=== PATIENT | male | born 1955 | race Caucasian/White ===

== ENCOUNTER 2019-06-16 12:17 | Inpatient (IN) | payer MEDICARE, SELFPAY ==
[2019-06-16] VITALS (10 sets, daily range): BP systolic 134–161; BP diastolic 81–95; PULSE 70–96; RESP 16–25; TEMP 36.6–37.7; O2SAT 94–100
--- NOTE | ~2019-06-16 | XR_ITS ---
XR chest 2V 06/16/2019 12:56 Indication: Shortness of breath. COPD. Procedure: AP view of the chest Comparison: 02/14/2017 Findings: Bibasilar airspace disease, compatible with pneumonia. No pleural effusion or pneumothorax. No acute osseous abnormality. Moderate degenerative changes of the left shoulder. Impression: 1: Bibasilar airspace disease, compatible with pneumonia. Edema is less favored. Reviewed, dictated and finalized at location A. PLASTERER Impression: 1: Bibasilar airspace disease, compatible with pneumonia. Edema is less favored .
--- NOTE | ~2019-06-16 | CT_ITS ---
EXAMINATION: CTA chest PE protocol DATE: 06/16/2019 14:07 INDICATION: Chest pain and hemoptysis TECHNIQUE: Computed tomography angiography (CTA) of the chest was performed with 100 mL Omnipaque-350 intravenous contrast timed to evaluate the pulmonary arteries. Coronal maximum intensity projection 3D-reconstructions were created by the technologist. The dose-length product (DLP) was 790.00 mGy-cm. Automated exposure control and iterative reconstruction technique were employed. COMPARISON: 07/18/2011 FINDINGS: The pulmonary arteries are well-opacified. Motion artifact limits the examination. No centr al pulmonary embolism is identified. There are patchy airspace throughout the lungs, worst in the low er lobes. Trace pleural effusions are present. There is no pneumothorax. The heart size is normal. Th ere is mediastinal and bilateral hilar lymphadenopathy. There are bridging osteophytes at multiple le vels in the spine, consistent with diffuse idiopathic skeletal hyperostosis (DISH). IMPRESSION: 1. No evidence of pulmonary embolism, sensitivity limited by motion artifact. 2. Multifocal pneumonia. Reviewed, dictated and finalized at location A. NG FILE CLERK
--- NOTE | 2019-06-16 12:27 | ECG_ITS ---
Measurements Intervals Adams Rate: 75 P: 53 IA: 182 QRS: 44 QRSD: 94 T: 27 QT: 416 QTc: 467 Interpretive Statements SINUS RHYTHM BORDERLINE ST-T WAVE ABNORMALITY- INFERIOR LEADS BORDERLINE ECG Electronically Signed On 06-16-2019 16:06:11 ECHOCARDIOGRAPHER by Boyd Best D.O.
[2019-06-16 12:43] LABS: Basophils Absolute Auto 0.1 K/mm3 (0.0-0.1); Basophils Percent Auto 0.9 % (0.2-1.2); Eosinophils Absolute Auto 0.4 K/mm3 (0-0.3); Eosinophils Percent Auto 5.3 % (0-4.4); Hematocrit 31.8 % (42.0-52.0); Hemoglobin 10.7 g/dL (14.0-18.0); Immature Granulocyte Absolute 0.12 K/mm3 (0.00-0.031); Immature Granulocyte Percent A 1.8 % (0-0.5); Lymphocytes Absolute Auto 1.79 K/mm3 (0.9-3.2); Lymphocytes Percent Auto 26.4 % (18.3-44.2); Mean Corpuscular HGB Conc 33.6 g/dl (32-36); Mean Corpuscular Hemoglobin 29.3 pg (26-34); Mean Corpuscular Volume 87.1 fl (80-100); Monocytes Absolute Auto 0.7 K/mm3 (0.1-0.6); Monocytes Percent Auto 9.9 % (2.6-8.5); Neutrophils Absolute Auto 3.8 K/mm3 (1.3-6.7); Neutrophils Percent Auto 55.7 % (45.5-73.1); Platelet Count Result 221 k/mm3 (150-375); Red Blood Count 3.65 M/mm3 (4.6-6.20); Red Cell Distribution Width 12.8 % (11.5-14.5); White Blood Count 6.8 K/mm3 (4.5-10.0)
[2019-06-16 12:54] LABS: Blood Urea Nitrogen 26 mg/dL (9-20); Calcium 9.2 mg/dL (8.4-10.2); Carbon Dioxide 25 mmol/L (22-30); Chloride 105 mmol/L (98-107); Estimated Glomerular Filt Rate > 60; Glucose 87 mg/dL (75-110); Potassium 3.5 mmol/L (3.4-5.0); Sodium 140 mmol/L (137-145)
--- NOTE | 2019-06-16 13:10 | ED.GENADULT ---
HPI - General Adult General Chief complaint: Shortness of Breath/Dyspnea Stated complaint: SOB, Cough Time Seen by Provider: 06/16/19 13:06 Source: patient Mode of arrival: ambulatory Limitations: no limitations History of Present Illness HPI narrative: The pt is a 63 y/o male who presents to the ED with c/o CP and hemoptysis. The pt states that he woke up and was coughing up phlegm yesterday morning that became blood by the evening. His CP is located on the lt side of his chest and began today upon arrival to the ED. The pt states that he has been coughing up globs of blood constantly. He reports chills, sweats, nausea, and epistaxis, but denies myalgia or vomiting. The has a PMHx of COPD, HTN, and osteoarthritis. He is not on a blood thinner, smokes over 1 PPD, and does not drink EtOH. complaint: CP and hemoptysis Onset (ago): unknown (hemopytsis began yesterday, CP began today upon arrival to ED) Location: chest (lt) Associated symptoms: other (chills, sweats, nausea, epistaxis) Related Data Home Medications Medication Instructions Recorded Confirmed aspirin 81 mg DAILY 04/20/19 06/16/19 ibuprofen 800 mg TID PRN 04/20/19 06/16/19 metoprolol succinate 25 mg PO DAILY 04/20/19 06/16/19 oxycodone-acetaminophen 1 tablet Q4-6H PRN 04/20/19 06/16/19 tamsulosin 0.4 mg PO DAILY 04/20/19 06/16/19 gabapentin 800 mg PO TID 06/16/19 06/16/19 Allergies Allergy/AdvReac Type Severity Reaction Status Date / Time No Known Allergies Allergy Unknown Verified 04/20/19 08:26 Review of Systems Review of Systems: All systems reviewed & are unremarkable except as noted in HPI and below Constitutional: Constitutional: Reports chills and Reports other (sweats) ENT: Reports epistaxis Cardiovascular: Cardiovascular: Reports chest pain Respiratory: Respiratory: Reports hemoptysis Gastrointestinal: Gastrointestinal: Reports nausea and Denies vomiting Musculoskeletal: Musculoskeletal: Denies myalgias [facility] Past Medical History Medical History (Updated 06/16/19 @ 16:48 by Shayy Landa MD) Anxiety Arthritis COPD (chronic obstructive pulmonary disease) Depression Emphysema lung Enlarged prostate GERD (gastroesophageal reflux disease) Hyperlipidemia Hypertension Hypothyroid Pain Polycystic kidney disease Psoriasis Surgical History Surgical History (Updated 06/16/19 @ 13:23 by Meghana Arango) H/O prostatectomy Social History Social History (Updated 06/16/19 @ 13:23 by Meghana Arango) Smoking packs per day: 1 Smoking cigarettes per day: 20.0 Years smoked: 45 Smoking pack-years: 45.00 Smoking status: Current every day smoker Tobacco type: cigarettes Alcohol intake: never Substance use: never Gender identity (if verbalized by the patient): Male Spiritual care concerns: No Agree to blood products: Yes Exam Const: General: alert Orientation/consciousness: patient oriented x3 Other: patent is no acute distress but looks like he does not feel well HENMT: Head: normocephalic and atraumatic General nose exam: Normal external nose present and Normal nares present Mouth: Yes Normal oral and palatal mucosa present and Yes lip normal Throat: posterior oropharynx normal and tonsils normal Eyes: Conjunctivae: conjunctivae normal Pupils: Equal, round and reactive pupils present EOM: EOMs intact bilaterally Neck: Neck: normal visual inspection Chest: Chest palpation & inspection: normal inspection of the chest Resp: Effort & Inspection: normal respiratory effort, not tachypneic and no use of accessory muscles Auscultation: wheezes (faint expiratory wheezing upper lobes bilateral) and diminished lung sounds Other: patient coughing but no hemoptysis. Course Reevaluation(s) Reevaluation #1: Patient states he feels better after neb tx. I have discussed plan to admitted for multifocal pneumonia Date: 06/16/19 Time: 14:30 Consultations Consultation #1: Discussed case with Naida Christianson
[2019-06-16 13:31] LABS: Prothrombin Time 12.6 Seconds (11.1-14.7)
[2019-06-16 13:32] LABS: Partial Thromboplastin Time 37.4 SECONDS (22.3-36.8)
[2019-06-16] MEDS: ALBUTEROL SULFATE NEB 2.5 MG/0.5 ML INH 5 MG INHALATION ×2 (13:39→20:49)
[2019-06-16] MEDS: IPRATROPIUM BR 0.02% INH SOLN 0.5 MG/2.5 ML VIAL INHALATION ×2 (13:39→20:49)
[2019-06-16 13:41] LABS: Alveolar/Arterial O2 Gradient 51.2 mmHg; Base Excess ABG -1.8 mEq/l (+/-2.0); Carboxyhemoglobin 0.5 % THb (0-2.0); Device ROOM AIR; Fractional Inspired Oxygen 21 %; HCO3 ABG 21.4 mEq/l (22.0-26.0); Methemoglobin ABG 0.4 %THb (0-1.5); Modified Allen's Test Pass; Oxygen Content ABG 14.9 %vol (16.0-22.0); Oxygen Saturation ABG 92.9 % (95.0-100.0); Oxyhemoglobin 91.5 % THb (90.0-100.0); PCO2 ABG 31.2 mmHg (35.0-45.0); PO2 ABG 61.2 mmHg (80.0-100.0); PO2 FiO2 Ratio Arterial Blood 2.91 %; Reduced Hemoglobin 7.6 %THb (0-5.0); Site Drawn LEFT RADIAL; Total Hemoglobin 11.6 g/dL (12.0-18.0); pH ABG 7.454 (7.350-7.450)
[2019-06-16 14:12] LABS: NT Pro B Type Natriuretic Pept 3010 PG/ML (5-100); Troponin I < 0.012 ng/mL (0.000-0.034)
--- NOTE | 2019-06-16 16:21 | ADMGEN ---
This patient, Kapil Cohen, was admitted to 3 Med Surg Room 320-01 @ 1555. Patient/family oriented to hospital policies and general routines including ID bracelet, bed and alarms, visiting hours, pain management, procedures, bathroom and other care routines, personal items, smoking policy, room service/diet, and visiting hours. Valuables list has been completed. Information on how to activate the Rapid Response Team has been discussed. Patient/Family are encouraged to report perceived risks to care and to ask questions if they do not understand what they are told or what they should do.
[2019-06-16] MEDS: LACTATED RINGERS 1,000 ML 125 ML IV CONT (16:52)
--- NOTE | 2019-06-16 19:45 | PM.IMHP ---
H&P: HPI History of Present Illness Chief complaint: Shortness of breath, hemoptysis. Narrative: Kapil Cohen is a 63 year old male smoker with COPD and hypertension who presented to the emergency department earlier this afternoon from home for evaluation of shortness of breath and hemoptysis. He began feeling poorly yesterday, with cough productive of dark green phlegm, diffuse frontal headache, subjective fever, chills, sweats, and nausea. He describes left-sided pleuritic pain which is worse with coughing and deep inspiration. He is mildly short of breath due to avoiding deep inspiration. Additionally, he had an episode of epistaxis and since then has been coughing up ?globs of blood.? At the time my evaluation, he began to cough and had posttussive emesis. He did not get the flu shot this year. He denies myalgias and arthralgias. He has appetite has been poor. He has had a couple of loose stools, but nothing significant. He denies significant sinus congestion, otalgia, and odynophagia. He denies sick contacts. Review of Systems Review of Systems: All systems reviewed & are unremarkable except as noted in HPI and below PMFSH Past Medical History Medical History (Updated 06/16/19 @ 20:38 by Naida Lazo PA-C) Anxiety Arthritis Chronic pain Patient has chronic pain in his left shoulder, knees, and back. COPD with emphysema Depression Enlarged prostate GERD (gastroesophageal reflux disease) History of anemia Hyperlipidemia Hypertension Psoriasis Tobacco dependence Surgical History Surgical History (Updated 06/16/19 @ 20:36 by Naida Lazo PA-C) No history of previous surgery Family History Family History (Updated 06/16/19 @ 20:36 by Naida Lazo PA-C) Other Lung cancer Social History Social History (Updated 06/16/19 @ 20:39 by Naida Lazo PA-C) Social History: The patient lives in [place] with his . He designates his , Neda, as his surrogate decision maker and he wishes to be a full code. 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 He denies alcohol and drug abuse. Smoking packs per day: 1 Smoking cigarettes per day: 20.0 Years smoked: 45 Smoking pack-years: 45.00 Smoking status: Current every day smoker Tobacco type: cigarettes Alcohol intake: never Substance use: never Gender identity (if verbalized by the patient): Male Spiritual care concerns: No Agree to blood products: Yes Meds Home Medications and Allergies Home Medications Medication Instructions Recorded Confirmed Type aspirin 81 mg DAILY 04/20/19 06/16/19 History ibuprofen 800 mg TID PRN 04/20/19 06/16/19 History metoprolol succinate 25 mg PO DAILY 04/20/19 06/16/19 History oxycodone-acetaminophen 1 tablet Q4-6H PRN 04/20/19 06/16/19 History tamsulosin 0.4 mg PO DAILY 04/20/19 06/16/19 History gabapentin 800 mg PO TID 06/16/19 06/16/19 History Allergies Allergy/AdvReac Type Severity Reaction Status Date / Time No Known Allergies Allergy Unknown Verified 04/20/19 08:26 Vital Signs Vital Signs - 24 hr 06/16/19 12:23 06/16/19 12:26 06/16/19 12:27 Temperature 97.9 F Pulse Rate 80 78 Respiratory Rate 25 H Blood Pressure 153/93 H Pulse Oximetry 99 99 06/16/19 13:39 06/16/19 13:47 06/16/19 15:52 Temperature Pulse Rate 70 80 80 Respiratory Rate 17 22 H 18 Blood Pressure 161/94 H 146/95 H Pulse Oximetry 100 96 06/16/19 15:55 Temperature 98.4 F Pulse Rate 77 Respiratory Rate 18 Blood Pressure 143/81 H Pulse Oximetry 95 Exam Narrative: Exam Narrative: General: A well-developed, moderately ill-appearing male lying on his right side in bed in no acute distress. HEENT: Normocephalic, atraumatic. PERRL, EOMI. Sclerae anicteric. Oral mucosa tacky. Neck: Supple. Respiratory: Respirations are nonlabored. Lung sounds are signifi
[2019-06-16] MEDS: ONDANSETRON INJ 4 MG/2 ML VIAL IV PUSH (20:03)
[2019-06-16 21:52] LABS: Iron 31 ug/dL (49-181)
[2019-06-16 22:01] LABS: Percent Iron Saturation 14 % (20-50)
[2019-06-16] MEDS: GABAPENTIN 400 MG CAPSULE 800 MG PO (22:12)
[2019-06-16 22:40] LABS: Folic Acid > 20.0 ng/mL (2.76->20)
[2019-06-17] VITALS (12 sets, daily range): BP systolic 126–144; BP diastolic 67–81; PULSE 76–87; RESP 16–20; TEMP 36.6–37; O2SAT 91–96
[2019-06-17] MEDS: LACTATED RINGERS 1,000 ML 125 ML IV CONT ×2 (00:55→09:18)
[2019-06-17] MEDS: ALBUTEROL SULFATE NEB 2.5 MG/0.5 ML INH 5 MG INHALATION ×3 (03:00→14:44)
[2019-06-17] MEDS: IPRATROPIUM BR 0.02% INH SOLN 0.5 MG/2.5 ML VIAL INHALATION ×3 (03:00→14:44)
[2019-06-17 06:23] LABS: Basophils Percent Auto 0.5 % (0.2-1.2); Eosinophils Absolute Auto 0.3 K/mm3 (0-0.3); Eosinophils Percent Auto 4.6 % (0-4.4); Hematocrit 28.6 % (42.0-52.0); Hemoglobin 9.8 g/dL (14.0-18.0); Immature Granulocyte Absolute 0.15 K/mm3 (0.00-0.031); Immature Granulocyte Percent A 2.7 % (0-0.5); Lymphocytes Absolute Auto 1.82 K/mm3 (0.9-3.2); Lymphocytes Percent Auto 33.3 % (18.3-44.2); Mean Corpuscular HGB Conc 34.3 g/dl (32-36); Mean Corpuscular Hemoglobin 29.2 pg (26-34); Mean Corpuscular Volume 85.1 fl (80-100); Mean Platelet Volume 8.9 fl (7.4-10.4); Monocytes Absolute Auto 0.5 K/mm3 (0.1-0.6); Monocytes Percent Auto 9.9 % (2.6-8.5); Neutrophils Absolute Auto 2.7 K/mm3 (1.3-6.7); Platelet Count Result 205 k/mm3 (150-375); Red Blood Count 3.36 M/mm3 (4.6-6.20); Red Cell Distribution Width 12.6 % (11.5-14.5); White Blood Count 5.5 K/mm3 (4.5-10.0)
[2019-06-17 06:35] LABS: Alanine Aminotransferase 33 U/L (4-50); Albumin Level 3.1 g/dL (3.5-5.1); Alkaline Phosphatase 70 U/L (38-126); Aspartate Amino Transferase 35 U/L (17-59); Bilirubin,Total 0.6 mg/dL (0.2-1.3); Blood Urea Nitrogen 20 mg/dL (9-20); Calcium 8.4 mg/dL (8.4-10.2); Carbon Dioxide 23 mmol/L (22-30); Chloride 103 mmol/L (98-107); Estimated CRCL calculation 103 ml/min; Estimated Glomerular Filt Rate > 60; Glucose 74 mg/dL (75-110); Potassium 3.4 mmol/L (3.4-5.0); Sodium 140 mmol/L (137-145)
[2019-06-17] MEDS: TAMSULOSIN HCL 0.4 MG CAPSULE PO (09:19)
[2019-06-17] MEDS: GABAPENTIN 400 MG CAPSULE 800 MG PO ×3 (09:19→18:23)
[2019-06-17] MEDS: METOPROLOL SUCCINATE EXT REL 25 MG TABCR PO (09:19)
--- NOTE | 2019-06-17 12:20 | PM.IMPN ---
Progress Note: A&P Assessment and Plan (1) Multifocal pneumonia: Code(s): J18.9 - Pneumonia, unspecified organism Status: Acute Assessment and Plan: Influenza negative. pt is on iv azithromycin and iv ceftriaxone. Sputum culture negative, WCC normal. BC are pending Awaiting Legionella and strep pneumoniae antigens. (2) Hemoptysis: Code(s): R04.2 - Hemoptysis Status: Acute Assessment and Plan: May be related to pneumonia. hb is 9.8 continue to watch No further episodes Pt can follow pulmology on discharge and rpt CT in 6 months time. Continue to treat with IV rocephin and zithromax (3) Normocytic anemia: Code(s): D64.9 - Anemia, unspecified Status: Acute Assessment and Plan: Continue to watch HB (4) Tobacco dependence: Code(s): F17.200 - Nicotine dependence, unspecified, uncomplicated Status: Acute Assessment and Plan: Smoking cessation adviced (5) COPD with emphysema: Code(s): J43.9 - Emphysema, unspecified Status: Acute Assessment and Plan: Continue scheduled nebulizers. Subjective Date/time seen: 06/17/19 12:20 Interval history: 63 year old male smoker with COPD and hypertension who presented to the emergency department admitted with shortness of breath and hemoptysis. Pt still looks unwell , tired wet cough with mucus,today. Pt found to have multifocal pneumonia on CT chest. Pt may have got unwell due to climate variation. Pt has history of COPD and continues to smoke Review of Systems Review of Systems: All systems reviewed & are unremarkable except as noted in HPI and below Constitutional: Constitutional: Reports fatigue and Reports lethargy Cardiovascular: Cardiovascular: Denies no additional cardiovascular complaints and Denies rapid heart rate Respiratory: Respiratory: Reports chest congestion, Reports cough, Reports excessive phlegm production and Reports wheezing Neurologic: Denies Abnormal speech present and Denies confusion Exam Narrative: Exam Narrative: General: Ill appearing wet cough, fatigued HEENT: Normocephalic Neck: Supple. Respiratory: Decreased breath sounds in bases Cardiovascular: Regular rate and rhythm with S1-S2. Gastrointestinal: Abdomen is soft, nontender, and nondistended with positive bowel sounds. Skin: Warm and dry. No rash or lesions on limited exam. Extremities: No cyanosis, clubbing, or edema. Radial and pedal pulses intact. Neurological: Alert. Cranial nerves 2-12 are grossly intact. No gross focal deficits to casual conversation. Psychiatric: Pleasant and cooperative . Objective Data Vital Signs Vital Signs: Vital Signs - 24 hr 06/16/19 12:23 06/16/19 12:26 06/16/19 12:27 Temperature 36.6 C Pulse Rate 80 78 Respiratory Rate 25 H Blood Pressure 153/93 H Pulse Oximetry 99 99 06/16/19 13:39 06/16/19 13:47 06/16/19 15:52 Temperature Pulse Rate 70 80 80 Respiratory Rate 17 22 H 18 Blood Pressure 161/94 H 146/95 H Pulse Oximetry 100 96 06/16/19 15:55 06/16/19 20:49 06/16/19 20:59 Temperature 36.9 C Pulse Rate 77 92 96 Respiratory Rate 18 18 18 Blood Pressure 143/81 H Pulse Oximetry 95 94 06/16/19 22:00 06/17/19 03:00 06/17/19 03:10 Temperature 37.7 C H Pulse Rate 86 76 81 Respiratory Rate 16 20 20 Blood Pressure 134/83 Pulse Oximetry 100 06/17/19 06:00 06/17/19 09:19 06/17/19 09:35 Temperature 37.0 C Pulse Rate 77 77 78 Respiratory Rate 16 20 Blood Pressure 133/81 Pulse Oximetry 93 06/17/19 09:41 06/17/19 09:42 Temperature Pulse Rate 82 Respiratory Rate 20 Blood Pressure Pulse Oximetry 95 Intake/Output Intake/Output: Intake & Output 06/14/19 06/15/19 06/16/19 06/17/19 23:59 23:59 23:59 23:59 Intake Total 740 2850 Output Total 550 600 Balance 190 2250 Meds/Results Medications: Active Medications Gener
--- NOTE | 2019-06-17 23:18 | PCRCNOTE ---
Window of time for administration has passed. See next scheduled administration.
[2019-06-18] VITALS (12 sets, daily range): BP systolic 108–130; BP diastolic 56–92; PULSE 65–93; RESP 18–22; TEMP 36.6–37.2; O2SAT 88–97
[2019-06-18] MEDS: ONDANSETRON INJ 4 MG/2 ML VIAL IV PUSH ×2 (02:23→18:18)
[2019-06-18] MEDS: IPRATROPIUM BR 0.02% INH SOLN 0.5 MG/2.5 ML VIAL INHALATION ×4 (02:30→21:01)
[2019-06-18] MEDS: ALBUTEROL SULFATE NEB 2.5 MG/0.5 ML INH 5 MG INHALATION ×4 (02:30→21:01)
[2019-06-18 06:48] LABS: Hematocrit 29.7 % (42.0-52.0); Hemoglobin 10.3 g/dL (14.0-18.0); Mean Corpuscular HGB Conc 34.7 g/dl (32-36); Mean Corpuscular Hemoglobin 29.2 pg (26-34); Mean Corpuscular Volume 84.1 fl (80-100); Mean Platelet Volume 8.7 fl (7.4-10.4); Platelet Count Result 216 k/mm3 (150-375); Red Blood Count 3.53 M/mm3 (4.6-6.20); Red Cell Distribution Width 12.4 % (11.5-14.5); White Blood Count 5.4 K/mm3 (4.5-10.0)
[2019-06-18 06:59] LABS: Potassium 3.5 mmol/L (3.4-5.0)
[2019-06-18 07:00] LABS: Blood Urea Nitrogen 13 mg/dL (9-20); Calcium 8.4 mg/dL (8.4-10.2); Carbon Dioxide 25 mmol/L (22-30); Chloride 101 mmol/L (98-107); Estimated CRCL calculation 103 ml/min; Estimated Glomerular Filt Rate > 60; Glucose 78 mg/dL (75-110); Sodium 140 mmol/L (137-145)
[2019-06-18] MEDS: POTASSIUM CHLORIDE 20 MEQ PACKET (FOR LIQUID) 40 MEQ PO (08:33)
[2019-06-18] MEDS: METOPROLOL SUCCINATE EXT REL 25 MG TABCR PO (08:34)
[2019-06-18] MEDS: IRON SUCROSE COMPLEX 500 MG in SODIUM CHLORIDE 0.9% IV 250 ML 78.6 MG IVPB (08:34)
[2019-06-18] MEDS: GABAPENTIN 400 MG CAPSULE 800 MG PO ×3 (08:34→17:59)
[2019-06-18] MEDS: TAMSULOSIN HCL 0.4 MG CAPSULE PO (08:35)
--- NOTE | 2019-06-18 16:20 | PM.IMPN ---
Progress Note: A&P Assessment and Plan (1) Multifocal pneumonia: Code(s): J18.9 - Pneumonia, unspecified organism Status: Acute Assessment and Plan: Found on Ct imaging of chest. Influenza negative. Patient reporting some improvement today in symptoms. Sputum culture not preformed due to >25 squamous epithelial cells. BC negative to date. Continue IV azithromycin and IV ceftriaxone. Awaiting Legionella and strep pneumoniae antigens. Duonebs, PEP therapy, Mucinex Monitor for improvements overnight Likely discharge on PO antibiotics once medically stable for discharge (2) Hemoptysis: Code(s): R04.2 - Hemoptysis Status: Acute Assessment and Plan: Possibly related to pneumonia. Hgb is 10.3; stable. No reports of other episodes Monitor Pt can follow pulmology on discharge and possible repeat chest CT in 6 months time. Continue to treat with IV rocephin and zithromax (3) Normocytic anemia: Code(s): D64.9 - Anemia, unspecified Status: Acute Assessment and Plan: Iron studies suggestive of anemia of chronic disease with low iron, TIBC, %sat and elevated ferritin. Hgb stable at 10.3. Continue to monitor Venofer IV given today Likely PO iron on discharge (4) Tobacco dependence: Code(s): F17.200 - Nicotine dependence, unspecified, uncomplicated Status: Acute Assessment and Plan: Smoking cessation will be encouraged (5) COPD with emphysema: Code(s): J43.9 - Emphysema, unspecified Status: Acute Assessment and Plan: Patient breathing better today. Lung exam did not reveal wheezing Continue scheduled nebulizers. Subjective Date/time seen: 06/18/19 16:20 Interval history: Patient is a 63 year old male smoker with COPD and hypertension is here for treatment of multifocal pneumonia and evaluation of hemoptysis. Patient states he is feeling slightly better today; he is breathing easier and his cough is improving. He complains of a headache around his forehead today. He denies any fevers/chills/sweats. He states he has been ambulating to the bathroom okay without being SOB. Otherwise no complaints. Denies headaches, dizziness, lightheadedness, changes in v/h, cp/palpitations, n/v/d/c, abd pain, dysphagia, melena, brbpr, dysuria, hematuria, cloudy urine, calf pain/swelling, s/sx of stroke Review of Systems Review of Systems: All systems reviewed & are unremarkable except as noted in HPI and below Exam Narrative: Exam Narrative: Patient lying supine in bed at time of visit; finishing with breathing treatment. Const: General: cooperative, comfortable, no acute distress, well developed, alert and in distress mild and respiratory Nutritional Appearance: well nourished Orientation/consciousness: patient oriented x3 HENMT: Head: normocephalic and atraumatic Ears: external ears normal General nose exam: Normal nares present Face and sinus: face symmetric Mouth: Yes tongue normal and Yes moist mucous membranes Teeth and gingiva: edentulous Throat: posterior oropharynx normal and uvula midline Eyes: General: appearance normal, both eyes and all related structures Sclera: sclerae normal Pupils: Equal, round and reactive pupils present EOM: EOMs intact bilaterally Neck: Neck: trachea midline and supple Resp: Effort & Inspection: normal respiratory effort Auscultation: clear to auscultation bilaterally, rhonchi (scattered) and diminished lung sounds Cardio: Rate: regular rate Rhythm: regular rhythm Heart sounds: no murmurs GI: Inspection: non-distended GI Palp: No abdominal tenderness and Yes Soft to palpation Auscultation: normal bowel sounds and normoactive bowel sounds Skin: General skin exam: normal color and no rashes or lesions no
[2019-06-18 16:58] LABS: Legionella pneumophila Ag Ur Not Detected (Not Detected)
[2019-06-18 21:15] LABS: Pneumococcal Antigen Urine Not Detected (Not Detected)
[2019-06-19] VITALS (10 sets, daily range): BP systolic 104–135; BP diastolic 49–75; PULSE 65–84; RESP 16–20; TEMP 36.6–37; O2SAT 91–95
[2019-06-19] MEDS: ALBUTEROL SULFATE NEB 2.5 MG/0.5 ML INH 5 MG INHALATION ×3 (02:29→15:09)
[2019-06-19] MEDS: IPRATROPIUM BR 0.02% INH SOLN 0.5 MG/2.5 ML VIAL INHALATION ×3 (02:29→15:09)
[2019-06-19 05:55] LABS: Hematocrit 29.4 % (42.0-52.0); Mean Corpuscular Hemoglobin 29.2 pg (26-34); Mean Platelet Volume 8.9 fl (7.4-10.4); Platelet Count Result 206 k/mm3 (150-375); Red Blood Count 3.42 M/mm3 (4.6-6.20); Red Cell Distribution Width 12.9 % (11.5-14.5); White Blood Count 6.2 K/mm3 (4.5-10.0)
[2019-06-19 06:15] LABS: Blood Urea Nitrogen 8 mg/dL (9-20); Calcium 8.6 mg/dL (8.4-10.2); Carbon Dioxide 25 mmol/L (22-30); Chloride 102 mmol/L (98-107); Estimated CRCL calculation 103 ml/min; Estimated Glomerular Filt Rate > 60; Glucose 98 mg/dL (75-110); Magnesium 1.7 mg/dL (1.6-2.3); Potassium 3.6 mmol/L (3.4-5.0); Sodium 138 mmol/L (137-145)
[2019-06-19] MEDS: MAGNESIUM SULF 2 GM/WATER 50ML 2 GM/50 ML BAG IVPB (08:19)
[2019-06-19] MEDS: POTASSIUM CHLORIDE 20 MEQ PACKET (FOR LIQUID) 40 MEQ PO (08:20)
[2019-06-19] MEDS: GABAPENTIN 400 MG CAPSULE 800 MG PO ×3 (08:24→21:28)
[2019-06-19] MEDS: METOPROLOL SUCCINATE EXT REL 25 MG TABCR PO (08:25)
[2019-06-19] MEDS: TAMSULOSIN HCL 0.4 MG CAPSULE PO (08:25)
[2019-06-19] MEDS: FERROUS SULFATE 324 MG TABLET PO (09:13)
--- NOTE | 2019-06-19 09:36 | PM.IMPN ---
Progress Note: A&P Assessment and Plan (1) Multifocal pneumonia: Code(s): J18.9 - Pneumonia, unspecified organism Status: Acute Assessment and Plan: Found on CT imaging of chest. Influenza negative. Patient reporting some improvement again today in symptoms, although still producing red-streaked sputum. Sputum culture not preformed due to >25 squamous epithelial cells. BC negative to date. Ur anitgens negative. Continue IV azithromycin and IV ceftriaxone. Duonebs, PEP therapy, Mucinex Monitor for improvements overnight Likely discharge on PO antibiotics once medically stable for discharge; likely discharge tomorrow if labs stable/clinical improvement (2) Hemoptysis: Code(s): R04.2 - Hemoptysis Status: Acute Assessment and Plan: Possibly related to pneumonia. This is likely irritation from his persistent cough. Hgb is 10.0; stable. Monitor Pt can follow pulmology on discharge and possible repeat chest CT in 6 months time. Continue to treat with IV rocephin and zithromax (3) Normocytic anemia: Code(s): D64.9 - Anemia, unspecified Status: Acute Assessment and Plan: Iron studies suggestive of anemia of chronic disease with low iron, TIBC, %sat and elevated ferritin. Hgb stable at 10.0 Continue to monitor PO iron daily and on discharge (4) Tobacco dependence: Code(s): F17.200 - Nicotine dependence, unspecified, uncomplicated Status: Acute Assessment and Plan: Smoking cessation encouraged again today (5) COPD with emphysema: Code(s): J43.9 - Emphysema, unspecified Status: Acute Assessment and Plan: Patient breathing better today. Lung exam did not reveal wheezing Continue scheduled nebulizers. Subjective Date/time seen: 06/19/19 09:36 Interval history: Patient is a 63 year old male smoker with COPD and hypertension is here for treatment of multifocal pneumonia and evaluation of hemoptysis. Patient states he is coughing up more brown phlegm with red streaks of blood in the phlegm today. He notes having one episode of non-bloody emesis yesterday but none since. He still has a headache around his forehead/temples. He otherwise has no complaints. He thinks his breathing continues to improve although not quite to his baseline. Denies f/c/ns, dizziness, lightheadedness, changes in v/h, cp/palpitations, n/v/d/c, abd pain, dysphagia, melena, brbpr, dysuria, hematuria, cloudy urine, calf pain/swelling, s/sx of stroke Review of Systems Review of Systems: All systems reviewed & are unremarkable except as noted in HPI and below Exam Narrative: Exam Narrative: Patient lying on left side in bed at time of visit Const: General: cooperative, no acute distress, well developed, alert and in distress mild (discomfort) Nutritional Appearance: well nourished Orientation/consciousness: patient oriented x3 HENMT: Head: normocephalic and atraumatic Ears: external ears normal General nose exam: No nasal discharge present and no epistaxis Face and sinus: face symmetric Mouth: Yes tongue normal and Yes moist mucous membranes Teeth and gingiva: edentulous Throat: posterior oropharynx normal and uvula midline Eyes: General: appearance normal, both eyes and all related structures Sclera: sclerae normal Pupils: Equal, round and reactive pupils present EOM: EOMs intact bilaterally Neck: Neck: trachea midline and supple Resp: Effort & Inspection: normal respiratory effort Auscultation: rhonchi (scattered, improvement from yesterday) and diminished lung sounds Cardio: Rate: regular rate Rhythm: regular rhythm Heart sounds: no murmurs GI: Inspection: non-distended Auscultation: normal bowel sounds and normoactive bowel sounds Skin: General sk
[2019-06-19] MEDS: PHENOL/SOD PHENO SPRAY CHERRY (*BKC) 1 SPRAY MUCOUS MEM (10:21)
[2019-06-19] MEDS: LORATADINE 10 MG TABLET PO (12:17)
[2019-06-19] MEDS: ONDANSETRON INJ 4 MG/2 ML VIAL IV PUSH (15:23)
[2019-06-19] MEDS: DIPHENHYDRAMINE 1%/ZINC 0.1% CREAM 30 GM TUBE 1 APPLIC TOPICAL ×2 (17:03→21:27)
[2019-06-19] MEDS: SALINE 0.65% NAS SOLN 44 ML BTL 1 SPRAY NASAL (21:28)
--- NOTE | 2019-06-19 23:12 | PCRCNOTE ---
Window of time for administration has passed. See next scheduled administration.
[2019-06-20] MEDS: IPRATROPIUM BR 0.02% INH SOLN 0.5 MG/2.5 ML VIAL INHALATION ×2 (03:09→09:15)
[2019-06-20] MEDS: ALBUTEROL SULFATE NEB 2.5 MG/0.5 ML INH 5 MG INHALATION ×2 (03:09→09:14)
[2019-06-20 03:10] VITALS: PULSE 78; RESP 18
[2019-06-20 03:19] VITALS: PULSE 74; RESP 18
[2019-06-20] MEDS: GABAPENTIN 400 MG CAPSULE 800 MG PO (05:34)
[2019-06-20 06:00] VITALS: BP 120/65; PULSE 72; RESP 20; TEMP 36.9; O2SAT 97
[2019-06-20 06:23] LABS: Hematocrit 31.7 % (42.0-52.0); Hemoglobin 10.7 g/dL (14.0-18.0); Mean Corpuscular HGB Conc 33.8 g/dl (32-36); Mean Corpuscular Hemoglobin 29.3 pg (26-34); Mean Corpuscular Volume 86.8 fl (80-100); Mean Platelet Volume 8.8 fl (7.4-10.4); Platelet Count Result 191 k/mm3 (150-375); Red Blood Count 3.65 M/mm3 (4.6-6.20); White Blood Count 6.8 K/mm3 (4.5-10.0)
[2019-06-20 06:38] LABS: Blood Urea Nitrogen 7 mg/dL (9-20); Calcium 8.7 mg/dL (8.4-10.2); Carbon Dioxide 23 mmol/L (22-30); Chloride 102 mmol/L (98-107); Estimated CRCL calculation 103 ml/min; Estimated Glomerular Filt Rate > 60; Glucose 83 mg/dL (75-110); Magnesium 1.7 mg/dL (1.6-2.3); Potassium 4.3 mmol/L (3.4-5.0); Sodium 136 mmol/L (137-145)
[2019-06-20 08:26] VITALS: PULSE 76
[2019-06-20] MEDS: METOPROLOL SUCCINATE EXT REL 25 MG TABCR PO (08:26)
[2019-06-20] MEDS: LORATADINE 10 MG TABLET PO (08:26)
[2019-06-20] MEDS: FERROUS SULFATE 324 MG TABLET PO (08:26)
[2019-06-20] MEDS: TAMSULOSIN HCL 0.4 MG CAPSULE PO (08:27)
[2019-06-20 09:15] VITALS: PULSE 71; RESP 20
[2019-06-20 09:24] VITALS: PULSE 78; RESP 20
[2019-06-20] MEDS: SALINE 0.65% NAS SOLN 44 ML BTL 1 SPRAY NASAL (10:01)
--- NOTE | 2019-06-20 10:34 | PM.DS ---
DS: Diagnosis Admitting Diagnosis Admitting Diagnosis: Pneumonia, unspecified organism Discharge Diagnosis (1) Multifocal pneumonia: Code(s): J18.9 - Pneumonia, unspecified organism Status: Acute Assessment and Plan: Found on CT imaging of chest. Influenza negative. Patient reporting significant improvement again today in symptoms. Hemoptysis has seemed to resolved. Sputum culture not preformed due to >25 squamous epithelial cells. BC negative to date. Ur anitgens negative. One more dose of IV ceftriaxone today, then discharge on PO cefdinir for 10 day total course of cephalosporin PO azithromycin today at discharge Duonebs, PEP therapy, Mucinex during stay. Mucinex recommended at discharge Discharge home today (2) Hemoptysis: Code(s): R04.2 - Hemoptysis Status: Acute Assessment and Plan: Possibly related to pneumonia. This seems to be resolved today. This is likely irritation from his persistent cough. Hgb is 10.7; stable. F/u with CBC in 1 week Pt can follow pulmology on discharge and possible repeat chest CT in several months per PCP or It Programmer Analyst (3) Normocytic anemia: Code(s): D64.9 - Anemia, unspecified Status: Acute Assessment and Plan: Iron studies suggestive of anemia of chronic disease with low iron, TIBC, %sat and elevated ferritin. Hgb stable at 10.7 Continue to monitor PO iron daily on discharge (4) Tobacco dependence: Code(s): F17.200 - Nicotine dependence, unspecified, uncomplicated Status: Acute Assessment and Plan: Smoking cessation encouraged again today (5) COPD with emphysema: Code(s): J43.9 - Emphysema, unspecified Status: Acute Assessment and Plan: Patient breathing better again today. Lung exam did not reveal wheezing Continue home regimen at discharge DS: Summary Hospital Course Reason for hospitalization: Hemoptysis; Multifocal PNA Hospital Course: Patient is a 63 yo M with history of COPD and HTN who presented to the ER on 06/16 from home for evaluation of SOB and hemoptysis. He states this started having a productive cough with dark green sputum on 06/15, with a diffuse frontal headache, subjective fever, chills, sweats, and nausea. He then began to have left sided pleuritic chest pain worsened with cough/deep inspiration. He also had an episode of epistaxis and then had been coughing up globs of blood . Please see H&P for further details. Presenting VS: BP 153/93, HR 80, RR 25, temp 97.9, sat 99% on RA Presenting Pertinent labs: WBC 6.8, H&H 10.7/31.8, MCV 87.1, aPTT 37.4, iron 31, TIBC 221, % sat 14, ferritin 265, negative troponin, BNP 3010, Ur anitigens negative, flu A& B negative. ABG showed pH 7.454, pCO2 31.2, pO2 61.2, HCO3 21.4, O2 sat 92.9, reduced hemoglobin 7.6. CBC, BMP, coags, ABG otherwise unremarkable Micro: Sputum culture not performed due to 25 or more squamous epith cells. Blood cultures negative to date x 2 Imagin/23 CXR Impression: 1: Bibasilar airspace disease, compatible with pneumonia. Edema is less favored. 06/16 CTA IMPRESSION: 1. No evidence of pulmonary embolism, sensitivity limited by motion artifact. 2. Multifocal pneumonia. ECG: Interpretive Statements SINUS RHYTHM BORDERLINE ST-T WAVE ABNORMALITY- INFERIOR LEADS BORDERLINE ECG Patient was admitted to the hospitalist service for further evaluation for multifocal PNA found on CT imaging as well as hemoptysis. Patient was placed on Azithromycin and Rocephin while in the ER and this continued until discharge. Patient also placed on mucinex with PEP Cornet therapy and duo neb treatments. Over the course of his stay, the patient slowly began to improve. By day of discharge, his symptoms ahd improved significantly and w
== END 2019-06-20 12:00 | disposition home or self-care (01) | DRG 194 ==
LOC: ANHED 15:08 → ANH3MEDSUR 15:15
PROVIDERS: Family Medicine; Physician Assistant; Admitting Provider Internal Medicine; Emergency Provider General Practice; PCP Family Medicine; Visit Provider Hospitalist
DX: J18.9 Pneumonia, unspecified organism (principal); R04.2 Hemoptysis; Q61.3 Polycystic kidney, unspecified; F17.210 Nicotine dependence, cigarettes, uncomplicated; D63.8 Anemia in other chronic diseases classified elsewhere; J43.9 Emphysema, unspecified; I10 Essential (primary) hypertension; M19.90 Unspecified osteoarthritis, unspecified site; F41.8 Other specified anxiety disorders; K21.9 Gastro-esophageal reflux disease without esophagitis; E78.5 Hyperlipidemia, unspecified; E03.9 Hypothyroidism, unspecified; L40.9 Psoriasis, unspecified; R04.0 Epistaxis
CPT/HCPCS: 36415; 36600; 71046; 71275; 80048; 80053; 82375; 82607; 82728; 82746; 82805; 83050; 83540; 83550; 83735; 83880; 84484; 85025; 85027; 85610; 85730; 87040; 87070; 87205; 87449; 87804; 87899; 93005; 94640; 94667; 94668; 96361; 96365; 96366; 96367; 96368; 96375; 99285; A9270; G0378; J0131; J0456; J0696; J1756; J2405; J3475; J7050; J7120; Q9967

== ENCOUNTER 2020-01-23 17:10 | Emergency (ER) | payer MEDICARE, SELFPAY ==
[2020-01-23 17:30] VITALS: BP 151/95; PULSE 81; RESP 16; TEMP 37.1; O2SAT 97
--- NOTE | 2020-01-23 18:04 | ED.SKABFB ---
HPI - Skin/Abscess/Foreign Bdy General Chief complaint: Skin/Abscess/Foreign Body Stated complaint: rash Source: patient and RN notes reviewed Mode of arrival: ambulatory Limitations: no limitations History of Present Illness HPI narrative: This is a 64-year-old white male that presented today with with complaints of multiple skin rash. Patient has developed a worsening skin rash to his right lower leg the rash is edematous, erythematous and warm to touch lesions are flat and circular in appearance with some scaly eczematous lesions. Patient also has edematous, erythematous area to both armpits bilateral and in his groin area which seems to be fungal related. Patient notes that he has a history of eczema and psoriasis. Patient will be given a dose of steroids with antifungal to his groin area and hydrocortisone to his armpit areas and hydroxyzine to prevent itching and infection he was also instructed to use Eucerin for his dry skin. The patient denies SOB, CP, palpitation, extremity numbness, lightheadedness, dizziness, constipation, diarrhea, chills, or fever. MD complaint: rash Related Data Home Medications Medication Instructions Recorded Confirmed ibuprofen 800 mg TID PRN 04/20/19 01/23/20 metoprolol succinate 25 mg PO DAILY 04/20/19 01/23/20 tamsulosin 0.4 mg PO DAILY 04/20/19 01/23/20 gabapentin 800 mg PO TID 06/16/19 01/23/20 Allergies Allergy/AdvReac Type Severity Reaction Status Date / Time No Known Allergies Allergy Unknown Verified 01/23/20 17:40 Review of Systems Review of Systems: All systems reviewed & are unremarkable except as noted in HPI and below (10 point system review) [facility] Past Medical History Medical History (Updated 01/23/20 @ 18:04 by IGNACIA Ward) Anxiety Arthritis Chronic pain Patient has chronic pain in his left shoulder, knees, and back. COPD with emphysema Depression Enlarged prostate GERD (gastroesophageal reflux disease) History of anemia Hyperlipidemia Hypertension Psoriasis Tobacco dependence Surgical History Surgical History (Updated 06/16/19 @ 20:36 by Naida Lazo PA-C) No history of previous surgery Family History Family History (Updated 06/16/19 @ 20:36 by Naida Lazo PA-C) Other Lung cancer Social History Social History (Updated 06/16/19 @ 20:39 by Naida Lazo PA-C) Social History: The patient lives in [place] with his . He designates his , Neda, as his surrogate decision maker and he wishes to be a full code. 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 He denies alcohol and drug abuse. Smoking packs per day: 1 Smoking cigarettes per day: 20.0 Years smoked: 45 Smoking pack-years: 45.00 Smoking status: Current every day smoker Tobacco type: cigarettes Alcohol intake: never Substance use: never Gender identity (if verbalized by the patient): Male Spiritual care concerns: No Agree to blood products: Yes Exam Narrative: Exam Narrative: GENERAL: This is a well-nourished, well-developed patient, in no apparent distress. HEAD: normocephalic, atraumatic. EYES: PERRL. Sclera clear/white. Vision is grossly intact. EARS: External ears normal, auditory canals clear and without drainage, TMs normal without perforation. Hearing grossly intact. NOSE: External nose normal with no obvious nasal discharge, nares without redness, no rhinorrhea. THROAT: Mucous membranes moist, posterior pharynx clear. NECK: Neck supple, non-tender without lymphadenopathy, masses or thyromegaly. CARDIOVASCULAR: Regular rate and rhythm without murmurs, gallops, or rubs. RESPIRATORY: Clear to auscultation. Breath sounds equal bilaterally. No wheezes, rales, or rhonchi. GASTROINTESTINAL: Abdomen soft, non-tender, nondistended. Bowel sounds are active. No hepato-splenomegaly, or palpable masses. No guarding. SKIN: Patient als
== END 2020-01-23 18:12 | disposition home or self-care (01) ==
PROVIDERS: Emergency Provider Nurse Practitioner; PCP Family Medicine
DX: L24.9 Irritant contact dermatitis, unspecified cause (principal); F17.210 Nicotine dependence, cigarettes, uncomplicated; I10 Essential (primary) hypertension; E78.5 Hyperlipidemia, unspecified; K21.9 Gastro-esophageal reflux disease without esophagitis; N40.0 Benign prostatic hyperplasia without lower urinary tract symptoms; J44.9 Chronic obstructive pulmonary disease, unspecified; M19.90 Unspecified osteoarthritis, unspecified site
CPT/HCPCS: 99213; G0463

== ENCOUNTER 2020-02-26 08:40 | Outpatient (CLI) | payer MEDICARE, SELFPAY ==
[2020-02-26 09:17] LABS: Basophils Absolute Auto 0.1 K/mm3 (0.0-0.1); Basophils Percent Auto 1.1 % (0.2-1.2); Eosinophils Absolute Auto 0.4 K/mm3 (0-0.3); Eosinophils Percent Auto 7.3 % (0-4.4); Hematocrit 42.1 % (42.0-52.0); Hemoglobin 14.6 g/dL (14.0-18.0); Immature Granulocyte Absolute 0.04 K/mm3 (0.00-0.031); Immature Granulocyte Percent A 0.7 % (0-0.5); Lymphocytes Absolute Auto 2.14 K/mm3 (0.9-3.2); Lymphocytes Percent Auto 40.1 % (18.3-44.2); Mean Corpuscular HGB Conc 34.7 g/dl (32-36); Mean Corpuscular Hemoglobin 31.9 pg (26-34); Mean Corpuscular Volume 92.1 fl (80-100); Mean Platelet Volume 9.1 fl (7.4-10.4); Monocytes Absolute Auto 0.4 K/mm3 (0.1-0.6); Monocytes Percent Auto 7.5 % (2.6-8.5); Neutrophils Absolute Auto 2.3 K/mm3 (1.3-6.7); Neutrophils Percent Auto 43.3 % (45.5-73.1); Platelet Count Result 186 k/mm3 (150-375); Red Blood Count 4.57 M/mm3 (4.6-6.20); White Blood Count 5.3 K/mm3 (4.5-10.0)
[2020-02-26 09:29] LABS: Alanine Aminotransferase 66 U/L (4-50); Albumin Level 4.4 g/dL (3.5-5.1); Alkaline Phosphatase 79 U/L (38-126); Anion Gap 9 mmol/L (8-16); Aspartate Amino Transferase 79 U/L (17-59); Bilirubin,Total 0.7 mg/dL (0.2-1.3); Blood Urea Nitrogen 19 mg/dL (9-20); CRP < 0.5 mg/dL (<1.0); Calcium 9.8 mg/dL (8.4-10.2); Carbon Dioxide 27 mmol/L (22-30); Chloride 106 mmol/L (98-107); Cholesterol 245 mg/dL (0-200); Estimated Glomerular Filt Rate > 60; Glucose 86 mg/dL (75-110); HDL Direct 31 mg/dL; Phosphorus 3.9 mg/dL (2.5-4.5); Sodium 142 mmol/L (137-145); Triglycerides 133 mg/dL (<150)
[2020-02-26 09:38] LABS: LDL Cholesterol Direct 203 mg/dL
[2020-02-26 09:58] LABS: Total Triiodothyronine (T3) 4.49 NG/ML (0.97-1.69)
[2020-02-26 10:13] LABS: Vitamin D 25 Hydroxy 50.4 ng/mL
[2020-02-26 11:20] LABS: Free T4 Free Thyroxine 0.33 ng/mL (0.78-2.19)
== END 2020-02-26 08:41 | disposition home or self-care (01) ==
PROVIDERS: PCP Family Medicine; Visit Provider Nurse Practitioner
DX: E55.9 Vitamin D deficiency, unspecified (principal); Z13.0 Encounter for screening for diseases of the blood and blood-forming organs and certain disorders involving the immune mechanism; Z13.220 Encounter for screening for lipoid disorders; I10 Essential (primary) hypertension; R53.81 Other malaise; D64.9 Anemia, unspecified
CPT/HCPCS: 36415; 80053; 80061; 82306; 82607; 82728; 84100; 84439; 84443; 84480; 85025; 86140

== ENCOUNTER 2020-05-21 15:46 | Emergency (ER) | payer MEDICARE, SELFPAY ==
[2020-05-21 16:03] VITALS: BP 147/90; PULSE 76; RESP 18; TEMP 36.9; O2SAT 97
[2020-05-21 16:08] VITALS: BP 147/90; PULSE 76; RESP 18; TEMP 36.9; O2SAT 97
--- NOTE | 2020-05-21 16:14 | ED.GENADULT ---
HPI - General Adult General Chief complaint: Dental/Oral Stated complaint: Hard to breath,something on tongue Time Seen by Provider: 05/21/20 16:18 Source: patient and RN notes reviewed Mode of arrival: ambulatory Limitations: no limitations History of Present Illness HPI narrative: 64-year-old male presents with concern for growths on the back of his tongue that he noticed a week ago. Reports he happened to look and saw the growths. He also reports simultaneously felt something similar when he swallowed and needs to clear his throat frequently. He denies difficulty swallowing or difficulty breathing. Reports a 40-year history of smoking, quit smoking 1 year ago. He denies fever, sore throat, tongue pain, other oral lesions, upper respiratory symptoms. MD complaint: Tongue lesion Related Data Home Medications Medication Instructions Recorded Confirmed ibuprofen 800 mg TID PRN 04/20/19 05/21/20 metoprolol succinate 25 mg PO DAILY 04/20/19 05/21/20 tamsulosin 0.4 mg PO DAILY 04/20/19 05/21/20 gabapentin 800 mg PO TID 06/16/19 05/21/20 atorvastatin 05/21/20 Allergies Allergy/AdvReac Type Severity Reaction Status Date / Time No Known Allergies Allergy Unknown Verified 01/23/20 17:40 Review of Systems Review of Systems: Narrative: CONSTITUTIONAL: Denies malaise, chills, sweats, or fever. EYES: Denies visual changes, redness, or discharge. ENT: Denies rhinorrhea, congestion, sinus pain, otalgia or sore throat. Reports bumps on the back of his tongue, feeling of bumps in his throat when he swallows CARDIOVASCULAR: Denies chest pain, palpitations, or edema. RESPIRATORY: Denies cough or dyspnea. SKIN: Denies rash or itching. All systems reviewed & are unremarkable except as noted in HPI and below PMFSH Past Medical History Medical History (Updated 05/21/20 @ 16:27 by Lisa Chen NP) Anxiety Arthritis Chronic pain Patient has chronic pain in his left shoulder, knees, and back. COPD with emphysema Depression Enlarged prostate GERD (gastroesophageal reflux disease) History of anemia Hyperlipidemia Hypertension Psoriasis Tobacco dependence Surgical History Surgical History (Updated 06/16/19 @ 20:36 by Naida Lazo PA-C) No history of previous surgery Family History Family History (Updated 06/16/19 @ 20:36 by Naida Lazo PA-C) Other Lung cancer Social History Social History (Updated 06/16/19 @ 20:39 by Naida Lazo PA-C) Social History: The patient lives in [place] with his . He designates his , Neda, as his surrogate decision maker and he wishes to be a full code. 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 He denies alcohol and drug abuse. Smoking packs per day: 1 Smoking cigarettes per day: 20.0 Years smoked: 45 Smoking pack-years: 45.00 Smoking status: Current every day smoker Tobacco type: cigarettes Alcohol intake: never Substance use: never Gender identity (if verbalized by the patient): Male Spiritual care concerns: No Agree to blood products: Yes Comments At time of signature, agree with nursing past medical, surgical, social and family history. There is no relevant family history pertinent to the presenting complaint Exam Narrative: Exam Narrative: GENERAL: Well-appearing, well-nourished, and in no acute distress. HEAD: Normocephalic, atraumatic. EYES: PERRLA, conjunctivae clear, and EOMI. No nystagmus. ENT: Nares clear. Mucous membranes moist. Tonsils not enlarged and without exudate no oropharynx erythema or edema. Tongue colored patches of bumps noted to the back of the tongue, equal patches on both sides of the tongue, no other obstruction noted, no drooling noted. Patient able to swallow secretions NECK: Supple. No lymphadenopathy. CHEST: No respiratory distress. Speaks in full sentences. HEART: Regular rate and rhythm.
== END 2020-05-21 16:33 | disposition home or self-care (01) ==
PROVIDERS: Emergency Provider Nurse Practitioner; PCP Family Medicine
DX: K14.9 Disease of tongue, unspecified (principal); M19.90 Unspecified osteoarthritis, unspecified site; J44.9 Chronic obstructive pulmonary disease, unspecified; N40.0 Benign prostatic hyperplasia without lower urinary tract symptoms; K21.9 Gastro-esophageal reflux disease without esophagitis; E78.5 Hyperlipidemia, unspecified; I10 Essential (primary) hypertension; Z87.891 Personal history of nicotine dependence
CPT/HCPCS: 99213; G0463

== ENCOUNTER 2020-06-19 13:08 | Outpatient (CLI) | payer MEDICARE, SELFPAY ==
--- NOTE | ~2020-06-19 | CT_ITS ---
EXAMINATION: CT soft tissue neck chest w DATE: 06/19/2020 13:52 INDICATION: Left vocal cord paralysis. TECHNIQUE: Computed tomography (CT) of the neck and chest was performed with 75 mL Omnipaque-350 intr avenous contrast. Automated exposure control and iterative reconstruction technique were employed. Th e dose-length product was 1214.19 mGy-cm. COMPARISON: chest CT 06/16/19, CT abdomen and pelvis 10/10/2013 FINDINGS: NECK CT: There are likely changes of ocular lens replacement surgeries. There are no pathologically e nlarged lymph nodes. There is plaque in the proximal internal carotid arteries with 0% stenosis relat alyssa to normal distal artery lumen diameters. There is mild mucosal thickening in the paranasal sinuse s. There is severe cervical spondylosis. CHEST CT: There is mild emphysema. There is mild atelectasis bilaterally. There is a 4 mm nodule in l eft lower lobe. There are 3 nodules at left major fissure measuring up to 8 mm without change. There are three 4-5 mm nodules in left upper lobe without change. No pleural effusion. There are no patholo gically enlarged lymph nodes. The heart size is normal. There are coronary artery calcifications. No pericardial effusion. There is mild bilateral gynecomastia. The liver demonstrates surface nodularity , consistent with cirrhosis. There is a 19 mm cyst in right kidney. There are bridging endplate osteo phytes at multiple levels in the spine, consistent with diffuse idiopathic skeletal hyperostosis (DIS H). There is moderate thoracic spondylosis. IMPRESSION: 1. No evidence of malignancy. 2. Mild emphysema. 3. Cirrhosis of the liver. Reviewed, dictated and finalized at location A. BORE HELPER
[2020-06-19 13:42] LABS: Estimated Glomerular Filt Rate > 60
== END 2020-06-19 13:09 | disposition home or self-care (01) ==
PROVIDERS: PCP Family Medicine; Visit Provider Otolaryngology
DX: R13.10 Dysphagia, unspecified (principal); J43.9 Emphysema, unspecified; K74.69 Other cirrhosis of liver
CPT/HCPCS: 70491; 71260; Q9967

== ENCOUNTER 2020-07-31 13:47 | Outpatient (CLI) | payer MEDICARE, SELFPAY ==
--- NOTE | 2020-07-31 14:00 | ECG_ITS ---
Measurements Intervals [place] Rate: 59 P: 43 WV: 237 QRS: 33 QRSD: 101 T: 7 QT: 442 QTc: 439 Interpretive Statements SINUS BRADYCARDIA WITH FIRST DEGREE AV BLOCK BORDERLINE ST-T WAVE ABNORMALITY- ANT/INF LEADS ABNORMAL ECG Electronically Signed On 07-31-2020 14:03:59 CDT by Boyd Best D.O.
== END 2020-07-31 13:48 | disposition home or self-care (01) ==
LOC: ANHSURGERY 13:49
PROVIDERS: PCP Family Medicine; Visit Provider Otolaryngology
DX: E78.5 Hyperlipidemia, unspecified (principal); I10 Essential (primary) hypertension; I44.0 Atrioventricular block, first degree
CPT/HCPCS: 93005

== ENCOUNTER → 2020-08-04 00:30 | Outpatient (CLI) | payer MEDICARE, SELFPAY ==
[2020-08-04 20:45] LABS: SARS-CoV-2 RNA PCR Negative
== END ==
PROVIDERS: PCP Family Medicine; Visit Provider Otolaryngology
DX: Z01.812 Encounter for preprocedural laboratory examination (principal); Z20.822 Contact with and (suspected) exposure to COVID-19
CPT/HCPCS: C9803; U0003; U0005

== ENCOUNTER 2020-08-07 01:02 | Day surgery (SDC) | payer MEDICARE, SELFPAY ==
[2020-07-27 11:29] VITALS: BMI 30.4
--- NOTE | 2020-08-06 10:39 | PM.IMHP ---
H&P: HPI History of Present Illness Date/Time: 08/06/20 10:39 64-year-old male presents for planned surgical procedures. Reports no change in symptoms as well as no change in medical history. Chief Complaint: Dysphagia, choking, left vocal cord paresis Review of Systems Constitutional: Constitutional: Denies fatigue, Denies fever(s) and Denies lethargy Eyes: Eyes: Denies blurry vision and Denies change in vision ENT: Reports as per HPI Cardiovascular: Cardiovascular: Denies chest pain Respiratory: Respiratory: Denies cough Endocrine: Endocrine: Denies fatigue Hematologic/Lymphatic: Hematologic/Lymphatic: Denies easy bleeding, Denies easy bruising and Denies lymphadenopathy Allergic/Immunologic: Allergic/Immunologic: Denies seasonal rhinorrhea [facility] Past Medical History Medical History (Updated 06/15/20 @ 14:19 by Timothy Tinsley MD) Anxiety Arthritis Chronic pain Patient has chronic pain in his left shoulder, knees, and back. COPD with emphysema Depression Enlarged prostate GERD (gastroesophageal reflux disease) History of anemia Hyperlipidemia Hypertension Psoriasis Tobacco dependence Surgical History Surgical History (Updated 06/16/19 @ 20:36 by Naida Lazo PA-C) No history of previous surgery Family History Family History (Updated 06/16/19 @ 20:36 by Naida Lazo PA-C) Other Lung cancer Social History Social History (Updated 06/15/20 @ 13:41 by Marsha Scherer MA) Social History: The patient lives in [place] with his . He designates his , Neda, as his surrogate decision maker and he wishes to be a full code. 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 He denies alcohol and drug abuse. Smoking packs per day: 2 Smoking cigarettes per day: 40.0 Years smoked: 45 Smoking pack-years: 90.00 Smoking status: Former smoker Tobacco type: cigarettes Smoking end date: 04/24/19 Alcohol intake: never Substance use: never Substance use type: does not use Gender identity (if verbalized by the patient): Male Spiritual care concerns: No Agree to blood products: Yes Meds Home Medications and Allergies Home Medications Medication Instructions Recorded Confirmed Type ibuprofen 800 mg PO TID PRN 04/20/19 07/27/20 History metoprolol succinate 25 mg PO DAILY 04/20/19 07/27/20 History tamsulosin 0.4 mg PO DAILY 04/20/19 07/27/20 History gabapentin 800 mg PO TID 06/16/19 07/27/20 History atorvastatin 10 mg PO DAILY 05/21/20 07/27/20 History Allergies Allergy/AdvReac Type Severity Reaction Status Date / Time No Known Allergies Allergy Unknown Verified 07/27/20 11:26 Exam Const: General: cooperative, healthy appearing, comfortable, well developed and alert HENMT: Head: normal to inspection, normocephalic and atraumatic Ears: hearing grossly normal bilaterally, external ears normal, TM's normal bilaterally and EAC's normal General nose exam: Normal external nose present, Normal nares present, No nasal polyps present, Normal nasal mucous membranes and turbinates present and Normal septum present Face and sinus: normal facial exam Mouth: Yes Normal oral and palatal mucosa present, Yes lip normal, Yes tongue normal, Yes oropharynx normal and Yes moist mucous membranes Teeth and gingiva: dentition normal and gingiva normal Throat: posterior oropharynx normal, tonsils normal and uvula midline Eyes: General: appearance normal, both eyes and all related structures Periorbital: periorbital findings normal Eyelids: eyelids normal Conjunctivae: conjunctivae normal Sclera: sclerae normal Neck: Neck: normal visual inspection, full ROM and no lymphadenopathy Thyroid: thyroid normal Lymphatic: no lymphadenopathy noted Resp: Effort & Inspection: normal respiratory effort and able to speak in complete sentences Cardio: Jugular venous distension: no JVD Isabela
[2020-08-07] VITALS (8 sets, daily range): BP systolic 110–156; BP diastolic 76–92; PULSE 54–80; RESP 14–20; TEMP 36–36.1; O2SAT 97–100
--- NOTE | 2020-08-07 07:09 | WPDHPUPDATE1 ---
History and Physical Update Update Date/Time: 08/07/20 07:09 History and Physical has been reviewed, including an updated exam of the patient. There are NO changes in the patient's condition. Risks, benefits, and alternatives have been discussed and questions answered. Patient agrees to proceed with procedure.
[2020-08-07] MEDS: LACTATED RINGERS 1,000 ML 30 ML IV CONT (10:48)
--- NOTE | 2020-08-07 10:49 | SUR.PREOP ---
pt informed delay in procedure possibly 1 hour
--- NOTE | 2020-08-07 10:59 | WPDANESEPPF ---
Anes - Initial Pre Proc Eval Procedure: Operation Date: 08/07/20 12:00 Proposed Procedures p Microdirect Laryngoscopy with Left Vocal Cord Injection - Timothy Tinsley MD Date/Time: 08/07/20 10:59 Surgeon: Timothy Tinsley MD Pre Op Diagnosis: paralysis of vocal cords and larynx Patient Data Age: 64 Gender: M Height: 6 ft Weight: 103.6 kg Last Vital Signs Temp 36.0 C L 08/07/20 10:06 Pulse 54 L 08/07/20 10:06 Resp 16 08/07/20 10:06 BP 139/86 08/07/20 10:06 Pulse Ox 100 08/07/20 10:06 Allergies Allergy/AdvReac Type Severity Reaction Status Date / Time No Known Allergies Allergy Unknown Verified 08/07/20 10:11 Home Medications Medication Instructions Recorded Confirmed Type ibuprofen 800 mg PO TID PRN 04/20/19 08/07/20 History metoprolol succinate 25 mg PO DAILY 04/20/19 08/07/20 History tamsulosin 0.4 mg PO DAILY 04/20/19 08/07/20 History gabapentin 800 mg PO TID 06/16/19 08/07/20 History atorvastatin 10 mg PO DAILY 05/21/20 08/07/20 History Patient hx anesthesia problems: none Family hx anesthesia problems: none PMFSH Past Medical History Medical History Anxiety Arthritis Chronic pain Patient has chronic pain in his left shoulder, knees, and back. COPD with emphysema Depression Enlarged prostate GERD (gastroesophageal reflux disease) History of anemia Hyperlipidemia Hypertension Psoriasis Tobacco dependence Surgical History Surgical History No history of previous surgery Family History Family History Other Lung cancer Social History Social History Social History: The patient lives in [place] with his . He designates his , Neda, as his surrogate decision maker and he wishes to be a full code. 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 He denies alcohol and drug abuse. Smoking packs per day: 2 Smoking cigarettes per day: 40.0 Years smoked: 45 Smoking pack-years: 90.00 Smoking status: Former smoker Tobacco type: cigarettes Smoking end date: 04/24/19 Alcohol intake: never Substance use: never Substance use type: does not use Living arrangements: with family Gender identity (if verbalized by the patient): Male Spiritual care concerns: No Agree to blood products: Yes Anes - Eval Final PreProcedure Day of Procedure 08/07/20 10:59 Patient weight: obese Heart: regular rate and rhythm Lungs: decreased breath sounds Airway: Mallampati scale class II Neurological: alert and oriented Last oral intake: >/= 8 hours ASA classification: III Emergent: no Anesthetic plan: proceed Anesthesia type and monitoring: general ETT and standard monitoring Informed Consent: The patient's anesthetic plan and its attendant risks and benefits were discussed with the patient/family/POA. Questions were solicited and answers provided to the satisfaction of the patient/family/POA.
--- NOTE | 2020-08-07 14:47 | SUR.PHASEI ---
[id number] sbar faxed floor notified
--- NOTE | 2020-08-07 14:50 | PM.PROC ---
Procedure Note - Detailed Date of procedure: 08/07/20 Pre-op diagnosis: paralysis of vocal cords and larynx Left vocal cord paralysis dysphagia cough worse voice Post-op diagnosis: same Procedure performed: Direct laryngoscopy Injection of left vocal cord Description of procedure: The patient was correctly identified consent was verified in the preoperative holding area. The patient was then brought to the operating room and a time-out was performed. General anesthesia was induced and endotracheal tube was secured the patient's airway and taped to the left. The bed was then rotated. A [employer] laryngoscope was then placed in the patient's oral cavity following placement of a moist Ray-Frederick over the patient's maxillary change gingiva as he was edentulous. The bilateral vocal cords were brought into view. The Pro Kapil in syringe was made ready and inserted into the operative field. 0.5 cc of pro larynx was injected lateral to the left thyroid arytenoid muscle. Good medialization was noted. Excess gel was suctioned. The hemostasis was excellent. Care the patient was then turned over Anesthesiology following removal of the Ray-Frederick and laryngoscope. This was performed under endoscopic guidance. I performed all dictated portions. Anesthesia: GETA Surgeon: Timothy Tinsley MD Estimated blood loss (mL): 0 Complications: No immediate complications Condition: stable Disposition: PACU
[2020-08-07] MEDS: fentaNYL CITRATE INJ (*CRX) 100 MCG/2 ML VIAL 25 MCG IV PUSH ×3 (15:06→15:20)
[2020-08-07] MEDS: oxyCODONE HCL (*CRX) 5 MG TAB IR PO (15:56)
== END 2020-08-07 16:35 | disposition home or self-care (01) ==
PROVIDERS: PCP Family Medicine; Visit Provider Otolaryngology
PROC: 0CJS8ZZ Inspection of Larynx, Via Natural or Artificial Opening Endoscopic (ICD-10-PCS; CPT 31599; principal; 2020-08-07 12:00)
DX: J38.02 Paralysis of vocal cords and larynx, bilateral (principal); R13.10 Dysphagia, unspecified; R49.9 Unspecified voice and resonance disorder; F41.9 Anxiety disorder, unspecified; M19.90 Unspecified osteoarthritis, unspecified site; J44.9 Chronic obstructive pulmonary disease, unspecified; F32.9 Major depressive disorder, single episode, unspecified; N40.0 Benign prostatic hyperplasia without lower urinary tract symptoms; K21.9 Gastro-esophageal reflux disease without esophagitis; E78.5 Hyperlipidemia, unspecified; I10 Essential (primary) hypertension; L40.9 Psoriasis, unspecified; R05 Cough; Z87.891 Personal history of nicotine dependence; E66.9 Obesity, unspecified; Z68.31 Body mass index [BMI] 31.0-31.9, adult
CPT/HCPCS: 31599; A9270; J2250; J3010; J7120

== ENCOUNTER 2020-10-14 01:33 | Inpatient (IN) | payer MEDICARE, SELFPAY ==
[2020-10-14] VITALS (17 sets, daily range): BP systolic 144–182; BP diastolic 75–107; PULSE 67–91; RESP 15–22; TEMP 36.4–36.9; O2SAT 91–100; BMI 29.9
--- NOTE | ~2020-10-14 | XR_ITS ---
EXAMINATION: XR chest 2V DATE: 10/14/2020 02:06 INDICATION: Shortness of breath. Hemoptysis. TECHNIQUE: frontal and lateral views of the chest were obtained. COMPARISON: Chest radiograph dated 06/16/2019 FINDINGS: Minimal bibasilar atelectasis at the posterior sulci. No other airspace opacities, pulmonary edema, p leural effusion or pneumothorax. The cardiomediastinal silhouette is normal. There are bridging osteo phytes at multiple levels in the spine, consistent with diffuse idiopathic skeletal hyperostosis (DIS H). IMPRESSION: 1. Minimal bibasilar atelectasis. No other acute cardiopulmonary disease. Reviewed, dictated and finalized at location A.
--- NOTE | ~2020-10-14 | CT_ITS ---
EXAMINATION: CTA chest PE protocol DATE: 10/14/2020 08:35 CDT INDICATION: Shortness of breath. Hemoptysis. TECHNIQUE: Computed tomographic angiography (CTA) of the chest was performed with 100 mL Omnipaque-35 0 intravenous contrast. The dose-length product was 949.55 mGy-cm. Maximum intensity projection 3D-re constructions of the aorta and other arteries were constructed by the technologist on a separate work station. Automated exposure control and iterative reconstruction technique were employed. COMPARISON: CT dated 06/19/2020 FINDINGS: Study is technically adequate without evidence for pulmonary embolism. There is atheroscler osis of the aorta. There is mediastinal and right hilar lymphadenopathy, likely reactive. No signific ant pleural or pericardial effusion. Heart size is normal. There is a right renal cyst measuring 2 cm . There are groundglass opacities of the lung apices as well as patchy areas in the left lung, suspic ious for pneumonia. No pneumothorax. No endobronchial lesions. There is a 5 mm right lower lobe nodul e, 81 which was likely present on the 06/19/2020 examination. There is a 4 mm left lower lobe nodule, image 103 IMPRESSION: 1. Patchy groundglass opacities of the lung apices, left upper and lower lobes as well as dependently in the lower lobes. Findings suspicious for pneumonia versus atelectasis. 2: Bilateral lower lobe nodules, likely benign. Twelve-month follow-up CT chest recommended. Reviewed, dictated and finalized at location B. IMPRESSION: 1. Patchy groundglass opacities of the lung apices, left upper and lower lobes as well as dependently in the lower lobes. Findings suspicious for pneumonia ve rsus atelectasis. 2: Bilateral lower lobe nodules, likely benign. Twelve-month follow-up CT chest recommended.
--- NOTE | 2020-10-14 01:38 | PC.NURSE ---
pt reports coughing up bright red blood and also c/o epistaxis with bright red blood since earlier today. skin pale. 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 present with pt.
--- NOTE | 2020-10-14 01:55 | ECG_ITS ---
Measurements Intervals [place] Rate: 68 P: 58 PA: 203 QRS: 43 QRSD: 98 T: 22 QT: 430 QTc: 460 Interpretive Statements SINUS RHYTHM BORDERLINE AV CONDUCTION DELAY BASELINE ARTIFACT- II, III, AVF, V1, V3-V6 BORDERLINE ECG Electronically Signed On 10-14-2020 5:45:02 CDT by Boyd Best D.O.
[2020-10-14 02:09] LABS: Basophils Absolute Auto 0.1 K/mm3 (0.0-0.1); Basophils Percent Auto 0.9 % (0.2-1.2); Eosinophils Absolute Auto 0.4 K/mm3 (0-0.3); Eosinophils Percent Auto 6.9 % (0-4.4); Hematocrit 34.7 % (42.0-52.0); Hemoglobin 11.7 g/dL (14.0-18.0); Immature Granulocyte Absolute 0.08 K/mm3 (0.00-0.031); Immature Granulocyte Percent A 1.5 % (0-0.5); Lymphocytes Absolute Auto 2.05 K/mm3 (0.9-3.2); Lymphocytes Percent Auto 37.3 % (18.3-44.2); Mean Corpuscular HGB Conc 33.7 g/dl (32-36); Mean Platelet Volume 9.7 fl (7.4-10.4); Monocytes Absolute Auto 0.4 K/mm3 (0.1-0.6); Monocytes Percent Auto 6.5 % (2.6-8.5); Neutrophils Absolute Auto 2.6 K/mm3 (1.3-6.7); Neutrophils Percent Auto 46.9 % (45.5-73.1); Platelet Count Result 143 k/mm3 (150-375); Red Blood Count 3.77 M/mm3 (4.6-6.20); Red Cell Distribution Width 12.8 % (11.5-14.5); White Blood Count 5.5 K/mm3 (4.5-10.0)
[2020-10-14 02:23] LABS: Alanine Aminotransferase 39 U/L (4-50); Albumin Level 3.6 g/dL (3.5-5.1); Alkaline Phosphatase 72 U/L (38-126); Anion Gap 7 mmol/L (8-16); Aspartate Amino Transferase 40 U/L (17-59); Bilirubin,Total 0.5 mg/dL (0.2-1.3); Blood Urea Nitrogen 18 mg/dL (9-20); Calcium 9.7 mg/dL (8.4-10.2); Carbon Dioxide 26 mmol/L (22-30); Chloride 112 mmol/L (98-107); Estimated CRCL calculation 102 ml/min; Estimated Glomerular Filt Rate > 60; Glucose 112 mg/dL (75-110); Potassium 3.3 mmol/L (3.4-5.0); Sodium 145 mmol/L (137-145)
--- NOTE | 2020-10-14 02:31 | ED.SOB ---
HPI - SOB/Dyspnea General Chief Complaint: Weakness Stated Complaint: cough Time Seen by Provider: 10/14/20 02:29 Source: patient Mode of arrival: ambulatory Limitations: no limitations History of Present Illness HPI Narrative: Patient is a 64-year-old male complaining of shortness of breath accompanied by hemoptysis, palpitations and generalized weakness that started 2 days ago. Patient denies any chest pain, abdominal pain, nausea, vomiting, fever, chills, hematemesis, melena, hematochezia or hematuria Related Data Home Medications Medication Instructions Recorded Confirmed ibuprofen 800 mg PO TID PRN 04/20/19 08/07/20 metoprolol succinate 25 mg PO DAILY 04/20/19 08/07/20 tamsulosin 0.4 mg PO DAILY 04/20/19 08/07/20 gabapentin 800 mg PO TID 06/16/19 08/07/20 atorvastatin 10 mg PO DAILY 05/21/20 08/07/20 Allergies Allergy/AdvReac Type Severity Reaction Status Date / Time No Known Allergies Allergy Unknown Verified 08/07/20 10:11 Review of Systems Review of Systems: All systems reviewed & are unremarkable except as noted in HPI and below Constitutional: Constitutional: Denies body ache(s), Denies chills, Denies excessive sweating, Denies fatigue, Denies fever(s), Denies headache(s), Denies lethargy, Denies malaise, Denies weakness and Denies weight loss Eyes: Eyes: Denies blurry vision, Denies change in vision and Denies loss of vision ENT: Denies dizziness, Denies ear discharge, Denies headache(s), Denies lip swelling, Denies epistaxis, Denies nasal congestion, Denies neck pain, Denies throat swelling and Denies tongue swelling Cardiovascular: Cardiovascular: Denies chest pain, Denies chest pain at rest, Denies chest pain with activity, Denies diaphoresis, Denies rapid heart rate, Denies edema, Denies irregular heart rhythm, Denies lightheadedness and Denies palpitations Respiratory: Respiratory: Denies chest congestion Gastrointestinal: Gastrointestinal: Denies abdominal pain, Denies melena, Denies hematochezia, Denies diarrhea, Denies nausea, Denies vomiting and Denies hematemesis Musculoskeletal: Musculoskeletal: Denies abnormal gait, Denies deformity, Denies joint swelling, Denies limited range of motion, Denies neck pain and Denies numbness Neurologic: Denies Abnormal speech present, Denies abnormal gait, Denies confusion, Denies dizziness, Denies headache(s), Denies focal weakness, Denies loss of vision, Denies numbness, Denies Other visual disturbances, Denies Sensory deficit (Neuro) and Denies weakness Psychiatric: Psychiatric: Denies confusion, Denies depression, Denies auditory hallucinations, Denies homicidal ideation and Denies suicidal ideation Endocrine: Endocrine: Denies cold intolerance, Denies excessive sweating, Denies fatigue, Denies heat intolerance and Denies palpitations Hematologic/Lymphatic: Hematologic/Lymphatic: Denies easy bleeding and Denies easy bruising Allergic/Immunologic: Allergic/Immunologic: Denies lip swelling, Denies throat swelling and Denies tongue swelling PMFSH Past Medical History Medical History Anxiety Arthritis Chronic pain Patient has chronic pain in his left shoulder, knees, and back. COPD with emphysema Depression Enlarged prostate GERD (gastroesophageal reflux disease) History of anemia Hyperlipidemia Hypertension Psoriasis Tobacco dependence Surgical History Surgical History No history of previous surgery Family History Family History Other Lung cancer Social History Social History Social History: The patient lives in [place] with his . He designates his , Neda, as his surrogate decision maker and he wishes to be a full code. He is retired [employer]. He has smoked a pack of cigarettes per day for many years, tells me h
[2020-10-14 03:11] LABS: Troponin I < 0.012 ng/mL (0.000-0.034)
[2020-10-14 03:22] LABS: INR 0.9; Prothrombin Time 13.2 Seconds (11.1-14.7)
[2020-10-14 03:25] LABS: D Dimer 1.05 ug/mL (<0.48)
[2020-10-14] MEDS: LACTATED RINGERS 1,000 ML 999 ML IV CONT (03:36)
[2020-10-14] MEDS: methylPREDNISolone SOD SUCC 125 MG VIAL IV PUSH (03:36)
[2020-10-14] MEDS: IPRATROPIUM BR 0.02% INH SOLN 0.5 MG/2.5 ML VIAL INHALATION ×4 (03:36→20:32)
[2020-10-14] MEDS: ALBUTEROL SULFATE NEB 2.5 MG/0.5 ML INH 5 MG INHALATION ×4 (03:37→20:31)
[2020-10-14] MEDS: POTASSIUM CHLORIDE 20 MEQ PACKET (FOR LIQUID) PO (05:03)
--- NOTE | 2020-10-14 05:53 | ADMGEN ---
This patient, Kapil Cohen, was admitted to Medical Room 261-01. Patient/family oriented to hospital policies and general routines including ID bracelet, bed and alarms, visiting hours, pain management, procedures, bathroom and other care routines, personal items, smoking policy, room service/diet, and visiting hours. Information on how to activate the Rapid Response Team has been discussed. Patient/Family are encouraged to report perceived risks to care and to ask questions if they do not understand what they are told or what they should do.
[2020-10-14] MEDS: LACTATED RINGERS 1,000 ML 125 ML IV CONT (06:49)
--- NOTE | 2020-10-14 08:50 | PM.IMHP ---
H&P: HPI History of Present Illness Date/Time: 10/14/20 08:50 Chief Complaint: The patient is a 64 year old man with a history of COPD with emphysema, quit smoking 2019, process of left vocal cord status post recent Direct laryngoscopy by Dr. Tinsley with injection of pro-larynx to left vocal cord 08/07/20, who presented to the emergency room with generalized weakness, shortness of breath and hemoptysis. Patient states he had been feeling well this weekend, was painting his house and doing a lot more activity than normal. Then on 10/11/2020, he felt very weak, fatigued, sleeping a lot, decreased appetite, as well as associated shortness of breath and hemoptysis. The patient reports feeling short of breath as if he is just diffusely weak, and is hard for him to take a breath due to weakness. He has been having some hemoptysis and clear sputum production. He reports the amount of hemoptysis is less than a tsp, but feels napkin. He does report some subjective fevers, but mostly chills. He reports some dizziness when he stands up. Denies any lightheadedness or syncope. Denies any urinary symptoms other than chronic frequent urination. He does have some nausea, denies any vomiting. He does report some abdominal pain but believes it is from his frequent coughing. He does report some frequent black stools, and takes ibuprofen 800 mg 3 times a day. He is not on a PPI. Denies any chest pain, palpitations, diarrhea, leg swelling, calf pain, headache, vision changes, or any other symptoms at this time. Code Status: Full Code POA: , Neda Cohen Review of Systems Review of Systems: All systems reviewed & are unremarkable except as noted in HPI and below PMFSH Past Medical History Medical History (Updated 10/14/20 @ 13:24 by Mariella Melgoza PA-C) Anxiety Arthritis Chronic pain Patient has chronic pain in his left shoulder, knees, and back. COPD with emphysema Depression Enlarged prostate GERD (gastroesophageal reflux disease) History of anemia Hyperlipidemia Hypertension Paralysis of left vocal cord s/p Direct laryngoscopy by Dr. Tinsley with injection of pro-larynx to left vocal cord 08/07/20 Psoriasis Tobacco dependence Surgical History Surgical History (Updated 10/14/20 @ 09:03 by Mariella Melgoza PA-C) History of laryngoscopy s/p Direct laryngoscopy by Dr. Tinsley with injection of pro-larynx to left vocal cord 08/07/20 Family History Family History Other Lung cancer Unknown family medical history Social History Social History (Updated 10/14/20 @ 13:14 by Mariella Melgoza PA-C) Social History: The patient lives in [place] with his . He designates his , Neda, as his surrogate decision maker and he wishes to be a full code. He is retired [employer]. He has smoked a pack of cigarettes per day for many years. Quit smoking 05/2019. He denies alcohol and drug abuse. Smoking packs per day: 2 Smoking cigarettes per day: 40.0 Years smoked: 40 Smoking pack-years: 80.00 Smoking status: Former smoker Tobacco type: cigarettes Smoking end date: 06/13/19 Alcohol intake: never Substance use: never Substance use type: does not use Living arrangements: with family Occupation/Education: retired Gender identity (if verbalized by the patient): Male Spiritual care concerns: No Agree to blood products: Yes Meds Home Medications and Allergies Home Medications Medication Instructions Recorded Confirmed Type ibuprofen 800 mg PO TID PRN 04/20/19 10/14/20 History metoprolol succinate 25 mg PO DAILY 04/20/19 10/14/20 History tamsulosin 0.4 mg PO DAILY 04/20/19 10/14/20 History gabapentin 800 mg PO TID 06/16/19 10/14/20 History albuterol sulfate 2 inh INHALATION Q4H PRN 10/14/20 10/14/20 History hydrocortisone 1 applic TOPICAL BID PRN 10/14/20 10/14/20 History oxycodone-acetaminophen 1 tablet PO TID PRN 10/14/2009/23
[2020-10-14 09:10] LABS: Hematocrit 34.7 % (42.0-52.0); Hemoglobin 12.1 g/dL (14.0-18.0); Mean Corpuscular HGB Conc 34.9 g/dl (32-36); Mean Corpuscular Hemoglobin 31.3 pg (26-34); Mean Corpuscular Volume 89.9 fl (80-100); Mean Platelet Volume 9.5 fl (7.4-10.4); Platelet Count Result 142 k/mm3 (150-375); Red Blood Count 3.86 M/mm3 (4.6-6.20); Red Cell Distribution Width 12.6 % (11.5-14.5); White Blood Count 4.2 K/mm3 (4.5-10.0)
[2020-10-14 09:16] LABS: Anion Gap 7 mmol/L (8-16); Blood Urea Nitrogen 17 mg/dL (9-20); Calcium 9.3 mg/dL (8.4-10.2); Carbon Dioxide 26 mmol/L (22-30); Chloride 109 mmol/L (98-107); Estimated CRCL calculation 90 ml/min; Estimated Glomerular Filt Rate > 60; Glucose 135 mg/dL (75-110); Potassium 3.7 mmol/L (3.4-5.0); Sodium 142 mmol/L (137-145)
[2020-10-14] MEDS: TAMSULOSIN HCL 0.4 MG CAPSULE PO (09:59)
[2020-10-14] MEDS: guaiFENesin 12 HR 600 MG TABCR PO ×2 (09:59→20:27)
[2020-10-14] MEDS: METOPROLOL SUCCINATE EXT REL 25 MG TABCR PO (10:00)
[2020-10-14] MEDS: GABAPENTIN 400 MG CAPSULE 800 MG PO ×3 (10:00→16:38)
[2020-10-14] MEDS: oxyCODONE/ACETAMINOPHEN (*CRX) 5-325 MG TABLET 1 TABLET PO ×2 (10:06→16:38)
[2020-10-14 11:49] LABS: Add Urine Microscopic? YES; Appearance Urine Clear (Clear); Bilirubin Urine Negative (Negative); Blood Urine Negative (Negative); Color Urine Yellow (Yellow); Glucose Urine UA 1+ mg/dL (Negative); Ketones Urine Negative (Negative); Leukocyte Esterase Ur Negative LEU/UL (Negative); Mucus Urine Rare /lpf; Nitrate Urine Negative (Negative); Protein Urine Negative (Negative); RBC Urine 0-2 /hpf (0-2); Specific Grav Ur 1.026 (1.001-1.035); Urobilinogen Urine Negative mg/dL (<2.0); WBC Urine 0-3 /hpf
[2020-10-14] MEDS: methylPREDNISolone SOD SUCC 40 MG VIAL IV PUSH ×2 (13:16→20:27)
--- NOTE | 2020-10-14 13:16 | PCSTNOTE ---
Please refer to the Bedside Swallow Evaluation in the EMR. Please note, silent aspiration cannot be ruled out at bedside.
[2020-10-14] MEDS: PANTOPRAZOLE SODIUM IV 40 MG VIAL IV PUSH ×2 (13:45→20:27)
[2020-10-14] MEDS: LACTATED RINGERS 1,000 ML 100 ML IV CONT (16:37)
[2020-10-15] VITALS (8 sets, daily range): BP systolic 142–159; BP diastolic 80–87; PULSE 75–92; RESP 16–18; TEMP 36.7–37; O2SAT 95–98
[2020-10-15] MEDS: IPRATROPIUM BR 0.02% INH SOLN 0.5 MG/2.5 ML VIAL INHALATION ×2 (02:27→08:09)
[2020-10-15] MEDS: ALBUTEROL SULFATE NEB 2.5 MG/0.5 ML INH 5 MG INHALATION ×2 (02:27→08:09)
[2020-10-15] MEDS: LACTATED RINGERS 1,000 ML 100 ML IV CONT (02:45)
[2020-10-15 05:38] LABS: Hematocrit 33.7 % (42.0-52.0); Hemoglobin 11.6 g/dL (14.0-18.0); Mean Corpuscular HGB Conc 34.4 g/dl (32-36); Mean Corpuscular Hemoglobin 30.9 pg (26-34); Mean Corpuscular Volume 89.6 fl (80-100); Mean Platelet Volume 9.9 fl (7.4-10.4); Platelet Count Result 159 k/mm3 (150-375); Red Blood Count 3.76 M/mm3 (4.6-6.20); Red Cell Distribution Width 12.5 % (11.5-14.5); White Blood Count 12.3 K/mm3 (4.5-10.0)
[2020-10-15 05:53] LABS: Anion Gap 10 mmol/L (8-16); Blood Urea Nitrogen 20 mg/dL (9-20); Calcium 8.9 mg/dL (8.4-10.2); Carbon Dioxide 24 mmol/L (22-30); Chloride 108 mmol/L (98-107); Estimated CRCL calculation 102 ml/min; Estimated Glomerular Filt Rate > 60; Glucose 133 mg/dL (75-110); Sodium 142 mmol/L (137-145)
[2020-10-15] MEDS: methylPREDNISolone SOD SUCC 40 MG VIAL IV PUSH (06:09)
[2020-10-15] MEDS: METOPROLOL SUCCINATE EXT REL 25 MG TABCR PO (08:20)
[2020-10-15] MEDS: guaiFENesin 12 HR 600 MG TABCR PO ×2 (08:20→20:08)
[2020-10-15] MEDS: GABAPENTIN 400 MG CAPSULE 800 MG PO ×3 (08:20→16:30)
[2020-10-15] MEDS: PANTOPRAZOLE SODIUM IV 40 MG VIAL IV PUSH ×2 (08:20→20:08)
[2020-10-15] MEDS: TAMSULOSIN HCL 0.4 MG CAPSULE PO (08:21)
[2020-10-15] MEDS: oxyCODONE/ACETAMINOPHEN (*CRX) 5-325 MG TABLET 1 TABLET PO ×2 (08:21→18:42)
--- NOTE | 2020-10-15 09:11 | PM.IMPN ---
Progress Note: A&P Assessment and Plan (1) CAP (community acquired pneumonia): Code(s): J18.9 - Pneumonia, unspecified organism Status: Acute Assessment and Plan: Patient was admitted into the hospital with community-acquired pneumonia, started on IV ceftriaxone and azithromycin. CT chest showed patchy groundglass opacities of the lung apices, left upper and lower lobes as well as dependently in the lower lobes. Findings suspicious for pneumonia versus atelectasis. Continue breathing treatments with albuterol and ipratropium - PRN since he does not believe it is helping. Incentive spirometer Ordered sputum culture - not obtained yet Legionella and pneumococcal antigens- pending Continue IV fluid hydration Continue monitoring. (2) COPD with emphysema: Code(s): J43.9 - Emphysema, unspecified Status: Acute Assessment and Plan: Lungs are clear at this time. Continue DuoNeb treatments PRN. Discontinued IV Solumedrol and placing him on Prednisone for 5 days, 50 mg. (3) Normocytic anemia: Code(s): D64.9 - Anemia, unspecified Status: Acute Assessment and Plan: Normocytic anemia. Patient states he has been having dark stools. He takes multiple ibuprofen a day and does not take any PPIs. Patient is on PPI q.12 hours on admission. Will get stool occult blood test H&H stable at this time. No acute signs of bleeding. Continue monitoring H& H. Transfuse as needed if hemoglobin less than 7. (4) Dysphagia: Code(s): R13.10 - Dysphagia, unspecified Status: Acute Assessment and Plan: Patient having some symptoms of dysphagia and has been following up with ENT Dr. Tinsley. He was recently found to have left laryngeal paralysis in under went a direct laryngoscopy by Dr. Tinsley with injection of pro-larynx to left vocal cord 08/07/20 He has been doing better since procedure Speech therapy did a bedside evaluation and found no issues with liquids. He did well with soft diet. No modified need at this time. Continue Soft diet Level 6 Continue monitoring. Aspiration precautions in place. (5) Acute hypokalemia: Code(s): E87.6 - Hypokalemia Status: Acute Assessment and Plan: Potassium stable at 4.0. Continue monitoring. (6) Elevated d-dimer: Code(s): R79.89 - Other specified abnormal findings of blood chemistry Status: Acute Assessment and Plan: Due to patient's shortness of breath a D-dimer was drawn in the emergency room and was elevated. CTA of the patient's chest was done which showed no acute pulmonary embolism. Patient has no leg swelling at this time or calf symptoms to be concerning for having a DVT. Will continue monitoring. (7) Lung nodules: Code(s): R91.8 - Other nonspecific abnormal finding of lung field Status: Acute Assessment and Plan: CT found Bilateral lower lobe nodules, likely benign. 12-month follow-up CT chest recommended. Need to follow up with PCP to set up CT Chest. Time Spent With Patient Time with patient: 25 - 35 minutes Subjective Date/time seen: 10/15/20 09:11 Interval history: Date of service 10/15/2020: Patient reports feeling slightly better, but he is having a cough still. Some dry cough, some productive cough. He denies any more blood in his sputum. He is now having some rib pain from coughing so much. He does report some shortness of breath, but states it is painful for taking a deep breath because of his muscular pain as well as feeling weak. Denies any chest tightness, wheezing. Patient denies any fevers, chills, chest pain, nausea, vomit
[2020-10-15] MEDS: BENZOCAINE/MENTHOL (*BKC) 18 EA LOZENGE 1 LOZENGE PO (12:10)
[2020-10-16] VITALS (8 sets, daily range): BP systolic 163–172; BP diastolic 88–100; PULSE 62–76; RESP 16–20; TEMP 36–37; O2SAT 95–98
--- NOTE | 2020-10-16 | ECHO_ITS ---
Patient Info Name: Kapil Cohen Age: 64 years : 1955 Gender: Male Ht: 72 in Wt: 221 lbs BSA: 2.28 m2 HR: 78 bpm BP: 166 / 88 mmHg Technical Quality: Good Exam Date: 10/16/2020 10:53 AM Exam Location: [facility] Pulmonary Exam Room: 261 Patient Status: Inpatient Admit Date: 10/15/2020 Staff Ordering Physician: Mariella Melgoza PA-C Senior Data Warehouse Architect: Toya Donaldson RDCS Attending Provider: Mariella Melgoza PA-C Referring Physician: Abad CHO; Exam Type: CA echo doppler color flow Study Info Indications - chest pain elevated blood pressure Complete two-dimensional, color flow and Doppler transthoracic echocardiogram is performed. Summary 1. Complete two-dimensional, color flow and Doppler transthoracic echocardiogram is performed. 2. Left ventricular chamber dimension is normal. 3. Left ventricular systolic function is normal, estimated at 60-65%. 4. There is mildly increased left ventricular wall thickness. 5. The left ventricular diastolic function is grade II diastolic dysfunction. 6. E/e' 10 is mildly elevated. 7. Left atrial chamber dimension is mildly enlarged. 8. There is trace mitral valve regurgitation. 9. No pulmonary hypertension, estimated pulmonary arterial systolic pressure is 18 mmHg. Left Ventricle E/e' 10 is mildly elevated. Left ventricular chamber dimension is normal. Left ventricular systolic function is normal, estimated at 60-65%. There is mildly increased left ventricular wall thickness. The left ventricular diastolic function is grade II diastolic dysfunction. Right Ventricle Right ventricular chamber dimension is normal. Right ventricular systolic function is normal. Left Atria Left atrial chamber dimension is mildly enlarged. Right Atria Right atrial chamber dimension is normal. Aortic Valve The aortic valve is trileaflet. There is no aortic valve stenosis. There is no aortic valve regurgitation. Pulmonic Valve There is no pulmonic regurgitation. Mitral Valve There is no mitral valve stenosis. There is trace mitral valve regurgitation. Tricuspid Valve There is no tricuspid valve regurgitation. No pulmonary hypertension, estimated pulmonary arterial systolic pressure is 18 mmHg. Pericardium/Pleural There is no pericardial effusion. Inferior Vena Cava Normal inferior vena cava with >50% collapse upon inspiration consistent with normal right atrial pressure, 5 mmHg. Aorta The aortic root size at the sinus of Valsalva is normal. Left Ventricular Outflow Tract Name Value Normal LVOT 2D LVOT Diameter 2.1 cm LVOT Doppler LVOT Peak Gradient 4 mmHg LVOT Mean Gradient 2 mmHg LVOT VTI 24 cm LVOT VTI/AV VTI Ratio 0.8 LVOT Stroke Volume 85 ml LVOT CO 15.5 l/min LVOT CI 6.8 l/min/m2 Pulmonic Valve Name Value
[2020-10-16] MEDS: oxyCODONE/ACETAMINOPHEN (*CRX) 5-325 MG TABLET 1 TABLET PO ×3 (05:07→20:57)
[2020-10-16] MEDS: METOPROLOL SUCCINATE EXT REL 25 MG TABCR PO (07:03)
[2020-10-16] MEDS: predniSONE 40 MG, predniSONE 10 MG 50 MG PO (08:29)
[2020-10-16] MEDS: GABAPENTIN 400 MG CAPSULE 800 MG PO ×3 (08:30→17:04)
[2020-10-16] MEDS: guaiFENesin 12 HR 600 MG TABCR PO ×2 (08:31→20:59)
[2020-10-16] MEDS: TAMSULOSIN HCL 0.4 MG CAPSULE PO (08:31)
[2020-10-16] MEDS: PANTOPRAZOLE SODIUM IV 40 MG VIAL IV PUSH ×2 (08:31→20:59)
[2020-10-16] MEDS: hydrALAZINE HCL 20 MG/ML VIAL 10 MG IV PUSH (09:07)
--- NOTE | 2020-10-16 09:08 | ECG_ITS ---
Measurements Intervals [place]kinson Rate: 67 P: 57 TN: 203 QRS: 44 QRSD: 96 T: 3 QT: 439 QTc: 464 Interpretive Statements SINUS RHYTHM BORDERLINE AV CONDUCTION DELAY BORDERLINE ST-T WAVE ABNORMALITY- INFERIOR LEADS BORDERLINE ECG Electronically Signed On 10-16-2020 9:39:55 CDT by Boyd Best D.O.
[2020-10-16 09:34] LABS: Hematocrit 33.3 % (42.0-52.0); Hemoglobin 11.3 g/dL (14.0-18.0); Mean Corpuscular HGB Conc 33.9 g/dl (32-36); Mean Corpuscular Volume 91.5 fl (80-100); Mean Platelet Volume 9.5 fl (7.4-10.4); Platelet Count Result 141 k/mm3 (150-375); Red Blood Count 3.64 M/mm3 (4.6-6.20); Red Cell Distribution Width 12.9 % (11.5-14.5); White Blood Count 10.5 K/mm3 (4.5-10.0)
--- NOTE | 2020-10-16 09:51 | PM.IMPN ---
Progress Note: A&P Assessment and Plan (1) Chest pain: Code(s): R07.9 - Chest pain, unspecified Status: Acute Assessment and Plan: Patient reported a sudden substernal chest pain episode right after he got done eating breakfast which was throbbing in nature and radiated to his back. Episode lasted 15 minutes. EKG ordered stat showing normal sinus rhythm with a heart rate of 67 beats per minute. No acute ST T-wave abnormality or arrhythmia noted. Stat troponin ordered and pending. Will trend troponin x3. Will order echocardiogram Believe it could be related to his elevated blood pressure verses GERD verses cholecystitis versus pancreatitis Patient's chest pain is resolved at this time and states it resolved after getting IV hydralazine for his blood pressure Continue monitoring for any more chest pain episodes. (2) Elevated blood pressure reading: Code(s): R03.0 - Elevated blood-pressure reading, without diagnosis of hypertension Status: Acute Assessment and Plan: Blood pressure reading since arrival which is been ranging in the 140s to 160s. The patient does not check his blood pressure at home. He is not on any medications for blood pressure control. I was reluctant to start him on any medications and have him check it as an outpatient follow-up with primary care provider, but this morning his blood pressure was 170/100. We gave his metoprolol early without any improvement of his blood pressure and remained 183/101 manually. He was given IV hydralazine Will check his blood pressure throughout the day. Consider starting him on lisinopril for blood pressure control in the long run. Continue monitoring. Make adjustments if needed. (3) CAP (community acquired pneumonia): Code(s): J18.9 - Pneumonia, unspecified organism Status: Acute Assessment and Plan: Patient was admitted into the hospital with community-acquired pneumonia, started on IV ceftriaxone and azithromycin. CT chest showed patchy groundglass opacities of the lung apices, left upper and lower lobes as well as dependently in the lower lobes. Findings suspicious for pneumonia versus atelectasis. Continue breathing treatments with albuterol and ipratropium - PRN since he does not believe it is helping. Incentive spirometer Ordered sputum culture - not obtained yet Legionella and pneumococcal antigens- pending Discontinued IV fluids, euvolemic in eating and drinking without any issues. Continue monitoring. (4) COPD with emphysema: Code(s): J43.9 - Emphysema, unspecified Status: Acute Assessment and Plan: Lungs are clear at this time. Continue DuoNeb treatments PRN. Discontinued IV Solumedrol and placing him on Prednisone for 5 days, 50 mg. (5) Normocytic anemia: Code(s): D64.9 - Anemia, unspecified Status: Acute Assessment and Plan: Normocytic anemia. Patient states he has been having dark stools. He takes multiple ibuprofen a day and does not take any PPIs. Patient is on PPI q.12 hours on admission. Will get stool occult blood test H&H stable at this time. No acute signs of bleeding. Continue monitoring H& H. Transfuse as needed if hemoglobin less than 7. (6) Dysphagia: Code(s): R13.10 - Dysphagia, unspecified Status: Acute Assessment and Plan: Patient having some symptoms of dysphagia and has been following up with ENT Dr. Tinsley. He was recently found to have left laryngeal paralysis in under went a direct laryngoscopy by Dr. Tinsley with injection of pro-larynx to left vocal cord 08/07/20 He has been doing better since procedure Speech therapy did a bedside evaluation and found no issues with liquids. He did well
--- NOTE | 2020-10-16 10:01 | PCPTNOTE ---
Attempted to see pt for PT session, but RN informed therapist that pt has had chest pain this AM. RADHA Patiño, requests that therapy hold until this afternoon until further testing is done. PT will hold and check back later on this date to see if pt is appropriate for therapy session.
[2020-10-16 10:07] LABS: Troponin I < 0.012 ng/mL (0.000-0.034)
[2020-10-16 10:09] LABS: Alanine Aminotransferase 26 U/L (4-50); Albumin Level 3.6 g/dL (3.5-5.1); Alkaline Phosphatase 55 U/L (38-126); Anion Gap 8 mmol/L (8-16); Aspartate Amino Transferase 26 U/L (17-59); Bilirubin,Total 0.4 mg/dL (0.2-1.3); Blood Urea Nitrogen 26 mg/dL (9-20); Calcium 8.6 mg/dL (8.4-10.2); Carbon Dioxide 27 mmol/L (22-30); Chloride 105 mmol/L (98-107); Estimated CRCL calculation 90 ml/min; Estimated Glomerular Filt Rate > 60; Glucose 129 mg/dL (75-110); Potassium 3.5 mmol/L (3.4-5.0); Sodium 140 mmol/L (137-145)
--- NOTE | 2020-10-16 10:39 | PCOTNOTE ---
Per Maggie, she verbalized to not see Patient this A.M. due to Patient complaining of chest pain. She requested that therapy services check back this afternoon.
[2020-10-16 10:52] LABS: Lipase 33 U/L (23-300)
--- NOTE | 2020-10-16 11:34 | PC.NURSE ---
On assessment this morning patient complained of being constipated, new orders for miralax and colace obtained. Meds were held, patient began having loose stools.
[2020-10-16 12:50] LABS: Pneumococcal Antigen Urine Not Detected (Not Detected)
[2020-10-16 12:53] LABS: Troponin I < 0.012 ng/mL (0.000-0.034)
[2020-10-16] MEDS: SALINE 0.65% NAS SOLN 44 ML BTL 1 SPRAY NASAL (14:25)
[2020-10-16 16:05] LABS: Troponin I < 0.012 ng/mL (0.000-0.034)
[2020-10-16] MEDS: DOCUSATE SODIUM 100 MG CAPSULE PO (20:58)
[2020-10-16] MEDS: BENZOCAINE/MENTHOL (*BKC) 18 EA LOZENGE 1 LOZENGE PO (21:01)
[2020-10-17] VITALS: PULSE 55
[2020-10-17 04:00] VITALS: PULSE 55
[2020-10-17 05:24] VITALS: BP 149/98; PULSE 63; RESP 16; TEMP 36; O2SAT 97
[2020-10-17] MEDS: oxyCODONE/ACETAMINOPHEN (*CRX) 5-325 MG TABLET 1 TABLET PO ×2 (05:44→12:08)
[2020-10-17 08:00] VITALS: PULSE 57
[2020-10-17] MEDS: GABAPENTIN 400 MG CAPSULE 800 MG PO ×2 (08:09→12:10)
[2020-10-17] MEDS: PANTOPRAZOLE SODIUM IV 40 MG VIAL IV PUSH (08:09)
[2020-10-17 08:10] VITALS: PULSE 63
[2020-10-17] MEDS: TAMSULOSIN HCL 0.4 MG CAPSULE PO (08:10)
[2020-10-17] MEDS: guaiFENesin 12 HR 600 MG TABCR PO (08:10)
[2020-10-17] MEDS: METOPROLOL SUCCINATE EXT REL 25 MG TABCR PO (08:10)
[2020-10-17] MEDS: predniSONE 40 MG, predniSONE 10 MG 50 MG PO (08:10)
[2020-10-17] MEDS: DOCUSATE SODIUM 100 MG CAPSULE PO (08:10)
--- NOTE | 2020-10-17 10:09 | PM.DS ---
DS: Admitting Diagnosis Admitting Diagnosis Admitting Diagnosis: SOB DS: Discharge Diagnosis Discharge Diagnosis (1) Chest pain: Code(s): R07.9 - Chest pain, unspecified Status: Acute Assessment and Plan: Patient reported a sudden substernal chest pain episode right after he got done eating breakfast 10/16/20 which was throbbing in nature and radiated to his back. Episode lasted 15 minutes, then resolved after being given IV hydralazine for some elevated blood pressure which was 180/101. EKG ordered stat showing normal sinus rhythm with a heart rate of 67 beats per minute. No acute ST T-wave abnormality or arrhythmia noted. Troponins were negative x3. Echocardiogram showing Left ventricular chamber dimension is normal. Left ventricular systolic function is normal, estimated at 60-65%. There is mildly increased left ventricular wall thickness. The left ventricular diastolic function is grade II diastolic dysfunction. Lipase and LFTs were normal . Patient denies anymore chest pain at this time. Cardiac work up completed and showing no signs of ACS. Atypical chest pain in nature. (2) Elevated blood pressure reading: Code(s): R03.0 - Elevated blood-pressure reading, without diagnosis of hypertension Status: Acute Assessment and Plan: Blood pressure reading since arrival which is been ranging in the 140s to 160s. The patient does not check his blood pressure at home. He is not on any medications for blood pressure control. I was reluctant to start him on any medications and have him check it as an outpatient follow-up with primary care provider, but this morning his blood pressure was 170/100. We gave his metoprolol early without any improvement of his blood pressure and remained 183/101 manually. He was given IV hydralazine 10/16/20 BP this morning was 149/98. Talked to the patient about elevated blood pressure and need to start checking BP at home regularly and follow up with PCP. He has mild LVH which could be from uncontrolled HTN. At this time, exercise, weight loss and diet changes and monitor BP. (3) CAP (community acquired pneumonia): Code(s): J18.9 - Pneumonia, unspecified organism Status: Acute Assessment and Plan: Patient was admitted into the hospital with community-acquired pneumonia, started on IV ceftriaxone and azithromycin. CT chest showed patchy groundglass opacities of the lung apices, left upper and lower lobes as well as dependently in the lower lobes. Findings suspicious for pneumonia versus atelectasis. Continue breathing treatments with albuterol and ipratropium - PRN since he does not believe it is helping. Incentive spirometer Ordered sputum culture but never collected. Legionella and pneumococcal antigens not detected. Continue Abx PO as an outpatient for total of 7 days (3 more days of therapy) (4) COPD with emphysema: Code(s): J43.9 - Emphysema, unspecified Status: Acute Assessment and Plan: Lungs are clear at this time. Continue DuoNeb treatments PRN. Discontinued IV Solumedrol and placing him on Prednisone for 5 days, 50 mg. Will need 50 mg until 10/20/20 (5) Normocytic anemia: Code(s): D64.9 - Anemia, unspecified Status: Acute Assessment and Plan: Normocytic anemia. Patient states he has been having dark stools. He takes multiple ibuprofen a day and does not take any PPIs. Patient is on PPI q.12 hours on admission. Ordered stool occult blood but never collected. H&H stable at this time. No acute signs of bleeding. (6) Dysphagia: Code(s): R13.10 - Dysphagia, unspecified Status: Acute Assessment and Plan: Patient having some symptoms of d
[2020-10-18 04:49] LABS: Legionella pneumophila Ag Ur Not Detected (Not Detected)
--- NOTE | 2020-10-20 10:05 | PC.NURSE ---
Legionella urine is negative
== END 2020-10-17 12:10 | disposition home or self-care (01) | DRG 195 ==
LOC: ANHED 04:33 → ANH2MED 04:47
PROVIDERS: Physician Assistant; Admitting Provider Internal Medicine; Emergency Provider Emergency Medicine; PCP Family Medicine; Visit Provider Emergency Medicine
DX: J18.9 Pneumonia, unspecified organism (principal); J43.9 Emphysema, unspecified; D64.9 Anemia, unspecified; R13.10 Dysphagia, unspecified; E87.6 Hypokalemia; R79.89 Other specified abnormal findings of blood chemistry; R91.8 Other nonspecific abnormal finding of lung field; R03.0 Elevated blood-pressure reading, without diagnosis of hypertension; R07.9 Chest pain, unspecified; Z79.899 Other long term (current) drug therapy; Z87.891 Personal history of nicotine dependence
CPT/HCPCS: 36415; 71046; 71275; 80048; 80053; 81001; 83690; 84484; 85025; 85027; 85380; 85610; 85730; 87449; 87899; 92610; 93005; 93306; 94640; 96361; 96365; 96366; 96367; 96375; 96376; 97110; 97116; 97161; 97165; 97535; 99285; A9270; C9113; G0378; J0360; J0456; J0696; J2920; J2930; J7120; J7512; Q9967

== ENCOUNTER → 2021-02-01 04:15 | Outpatient (CLI) | payer MEDICARE, SELFPAY ==
[2021-02-01 20:20] LABS: SARS-CoV-2 RNA PCR Negative
== END ==
PROVIDERS: PCP Family Medicine; Visit Provider Family Medicine
DX: Z20.822 Contact with and (suspected) exposure to COVID-19 (principal)
CPT/HCPCS: C9803; U0003; U0005

== ENCOUNTER 2021-06-13 18:07 | Emergency (ER) | payer MEDICARE, SELFPAY ==
--- NOTE | 2021-06-13 18:08 | ED.SKABFB ---
HPI - Skin/Abscess/Foreign Bdy General Chief complaint: Skin/Abscess/Foreign Body Stated complaint: Sore on back,hand and eye Time Seen by Provider: 06/13/21 18:09 Source: patient and RN notes reviewed History of Present Illness HPI narrative: Patient is 65-year-old male who presents the urgent care with complaints of a sore on the hand, to the corner of the right eye and across the upper back. Patient states that they started approximately 1 week ago and he cannot keep picking them . Patient denies any history of staph infection. Denies of fever, chills, nausea, vomiting. States that he has been using Neosporin to the areas. Also reports of cutting off the top of the wart on his hand . No other acute complaints. No acute distress noted. Patient aware of the plan of care. Some parts of this dictation were generated by voice recognition software and may contain typographical and/or grammatical inaccuracies. Related Data Home Medications Medication Instructions Recorded Confirmed ibuprofen 800 mg PO TID PRN 04/20/19 06/13/21 metoprolol succinate 25 mg PO DAILY 04/20/19 06/13/21 tamsulosin 0.4 mg PO DAILY 04/20/19 06/13/21 gabapentin 800 mg PO TID 06/16/19 06/13/21 Aspirin Child 81 mg PO DAILY 06/13/21 06/13/21 Allergies Allergy/AdvReac Type Severity Reaction Status Date / Time No Known Allergies Allergy Unknown Verified 06/13/21 18:17 Review of Systems Review of Systems: CONSTITUTIONAL: Denies fever, chills, or sweats. EYES: Denies visual changes, redness, or discharge. ENT: Denies rhinorrhea, congestion, sore throat, or otalgia. CARDIOVASCULAR: Denies chest pain, palpitations, or edema. RESPIRATORY: Denies cough or dyspnea. GASTROINTESTINAL: Denies abdominal pain, nausea, vomiting, or diarrhea. GENITOURINARY: Denies dysuria or hematuria. SKIN: Reports of itchy rash to the upper back, near the corner of the right eye, and a possible wart to the right hand MUSCULOSKELETAL: Denies back pain, joint pain, or myalgia. NEUROLOGIC: Denies headache, numbness, or weakness. All other systems reviewed are negative, except as documented in HPI. [facility] Past Medical History Medical History (Updated 06/13/21 @ 18:39 by MARIELA Clemens) Anxiety Arthritis Chronic pain Patient has chronic pain in his left shoulder, knees, and back. COPD with emphysema Depression Enlarged prostate GERD (gastroesophageal reflux disease) History of anemia Hyperlipidemia Hypertension Paralysis of left vocal cord s/p Direct laryngoscopy by Dr. Tinsley with injection of pro-larynx to left vocal cord 08/07/20 Psoriasis Tobacco dependence Surgical History Surgical History (Updated 10/14/20 @ 09:03 by Mariella Melgoza PA-C) History of laryngoscopy s/p Direct laryngoscopy by Dr. Tinsley with injection of pro-larynx to left vocal cord 08/07/20 Family History Family History Other Lung cancer Unknown family medical history Social History Social History (Updated 10/14/20 @ 13:14 by Mariella Melgoza PA-C) Social History: The patient lives in [place] with his . He designates his , Neda, as his surrogate decision maker and he wishes to be a full code. He is retired [employer]. He has smoked a pack of cigarettes per day for many years. Quit smoking 05/2019. He denies alcohol and drug abuse. Smoking packs per day: 2 Smoking cigarettes per day: 40.0 Years smoked: 40 Smoking pack-years: 80.00 Smoking status: Former smoker Tobacco type: cigarettes Smoking end date: 06/13/19 Alcohol intake: never Substance use: never Substance use type: does not use Gender identity (if verbalized by the patient): Male Spiritual care concerns: No Agree to blood products: Yes Comments At the time of my signature, I reviewed and agree with the nursing past medical, surgical, social, and family history. There is no relevant family history pertinent to the
[2021-06-13 18:19] VITALS: BP 142/87; PULSE 82; RESP 18; TEMP 37.2; O2SAT 99
== END 2021-06-13 18:41 | disposition home or self-care (01) ==
PROVIDERS: Emergency Provider Nurse Practitioner Family; PCP Family Medicine
DX: S21.209A Unspecified open wound of unspecified back wall of thorax without penetration into thoracic cavity, initial encounter (principal); L30.9 Dermatitis, unspecified; L98.9 Disorder of the skin and subcutaneous tissue, unspecified; M19.90 Unspecified osteoarthritis, unspecified site; J44.9 Chronic obstructive pulmonary disease, unspecified; N40.0 Benign prostatic hyperplasia without lower urinary tract symptoms; K21.9 Gastro-esophageal reflux disease without esophagitis; E78.5 Hyperlipidemia, unspecified; I10 Essential (primary) hypertension
CPT/HCPCS: 99213; G0463